=== PATIENT | female | born 1940 | race Caucasian/White ===

== ENCOUNTER 2017-10-31 10:18 | Observation (INO) | payer MEDICARE ==
--- NOTE | 2017-10-31 11:53 | HP ---
PRIMARY CARE PHYSICIAN: Ortega Jung M.D. REASON FOR ADMISSION: Transfer from [facility] for rule out CVA, suspected TIA. HISTORY OF PRESENT ILLNESS: A 77-year-old female with a history of hypertension who initially went t o [facility] with complaint of weakness and dizziness. The patient was having heada nuha in frontal region. She did not have any motor or sensory symptoms when she went to [facility]. She did not have any chest pain, palpitation or shortness of breath. She was hypert ensive with blood pressure 181/106 during triage. At [facility], they noted that cheo henriquez's left side of face was drooling and that is why they suspected TIA and considering stroke-like symptoms patient had CT brain at [facility] which was normal. Chest x-ray was also unremarkable. Routine blood test done at [facility] was also unremarkable. She di d not have any fever, chills, nausea, and vomiting. She denies any tinnitus. She denies any orthopn ea, PND or leg swelling. She denies any constipation, diarrhea, melena, or UTI symptoms. REVIEW OF SYSTEMS: The following complete review of systems was negative, unless otherwise mentioned in the HPI or below: Constitutional: Weight loss or gain, ability to conduct usual activities. Skin: Rash, itching. Eyes: Double vision, pain. ENT/Mouth: Nose bleeding, neck stiffness, pain, tenderness. Cardiovascular: Palpitations, dyspnea on exertion, orthopnea. Respiratory: Shortness of breath, wheezing, cough, hemoptysis, fever or night sweats. Gastrointestinal: Poor appetite, abdominal pain, heartburn, nausea, vomiting, constipation, or diarr hea. Genitourinary: Urgency, frequency, dysuria, nocturia. Musculoskeletal: Pain, swelling. Neurologic/Psychiatric: Anxiety, depression. Allergy/Immunologic: Skin rash, bleeding tendency. Please see my HPI for pertinent positive and negative. All other review of systems reviewed and nega tive except as mentioned in the HPI. ALLERGIES: No known drug allergies. CURRENT HOME MEDICATIONS: Aspirin 81 mg p.o. daily and metoprolol tartrate 50 mg p.o. daily. PAST MEDICAL HISTORY: Hypertension. PAST SURGICAL HISTORY: Hysterectomy. PAST PSYCHIATRIC HISTORY: Reviewed and negative. SOCIAL HISTORY: Patient lives at home. She does not work. She denies any tobacco, alcohol or illic it drug abuse. FAMILY HISTORY: No strong family history of premature coronary artery disease, stroke or cancer. EMERGENCY ROOM COURSE: Patient is given aspirin. PHYSICAL EXAMINATION: VITAL SIGNS: Currently, blood pressure 154/74, pulse 76, respiratory rate 15, temperature 97.5, satu ration 96% on room air, and weight 64 kilograms. GENERAL: Patient is currently alert, awake, no obvious acute distress. HEAD: Normocephalic, atraumatic. EYES: Pupils round, reactive to light. Extraocular muscle intact. ENT: Oropharynx within normal limits. Moist mucous membranes, no oral lesion, no pharyngeal erythem a, no exudate. NECK: Supple, no JVD, no thyromegaly, no carotid bruit, no jugular venous distention. LUNGS: Clear to auscultation without any rhonchi or rales. CARDIAC: S1, S2 regular without any murmur. ABDOMEN: Soft, bowel sounds present, nontender, and nondistended. No organomegaly, no mass, no supr apubic tenderness. BACK: Examination unremarkable, no CVA tenderness. EXTREMITIES: Upper extremity; passive movement of all joints are normal. Lower extremities: No balbir ma. Good peripheral pulsation. SKIN: No skin rash. HEMATOLOGICAL SYSTEM: No lymphadenopathy. PSYCHIATRIC: Normal affect. HEMATOLOGICAL SYSTEM: No lymphadenopathy. NEUROLOGIC: Patient is currently alert and oriented x3. Cranial nerves II-XII intact. Motor 5/5 in all four limbs. Sensation bilaterally symmetrical. No cerebellar sign. Plantar bilateral flexor. Speech normal. SIGNIFICANT FOR LABORATORY DATA: Blood tests done at [facility] reviewed. CBC: WB C 5.4, hemoglobin 15.4, platelet 220. INR 1.0. BMP: Sodium 137, potassium 3.3, chloride 99, BUN 18 , creatinine 0.98, glucose 118, calcium 9.6, magnesium 1.7. LFT: AST 18, ALT 15, alkaline phosphata se 66, albumin 4.0. CK 27, CK-MB 1.0. Troponin 0.015. BNP 30.6. Urinalysis normal. ASSESSMENT AND PLAN/IMPRESSION: 1. Dizziness, headache, facial droop, transient and now resolved, suspected for transient ischemic a ttack and rule out cerebrovascular accident. This patient has CT brain which is normal. Currently, patient is completely normal neurologically. We will do MRI brain and carotid ultrasound for further evaluation. No need of echocardiography because of normal cardiac examination and unremarkable on m onitor. If carotid Doppler and MRI is normal, then we will consider discharging her home tomorrow mo rning after neuro check for several hours. We will continue aspirin 325 mg p.o. daily. We will chec k homocysteine and lipid profile tomorrow and consider statin therapy. 2. Hypertension with hypertensive urgency. We will continue patient's home dose of metoprolol 50 mg p.o. daily. We will verify the patient's home medication. 3. Hypokalemia. We will replace potassium chloride 20 mEq p.o. one time dose. 4. Deep venous thrombosis prophylaxis not needed because we are expecting discharge in 24 hours. 5. Gastrointestinal prophylaxis, Pepcid 20 mg p.o. b.i.d. 6. Code status: The patient is FULL CODE. The patient does not have any surrogate decision maker. Disposition plan based on above-mentioned investigation result. We will consider discharging her coco e as early as tomorrow morning early if she remains neurologically intact in next several hours. Abo ve-mentioned investigation is unremarkable.
[2017-10-31] MEDS ORDERED: Ondansetron HCl/PF 4 MG/2 ML Vial IVP PRN (12:28)
[2017-10-31] MEDS ORDERED: Loratadine 10 MG TAB PO PRN (12:28)
[2017-10-31] MEDS ORDERED: Chloraseptic Spray 180 ml Bottle PO PRN (12:28)
[2017-10-31] MEDS ORDERED: HYDROcodone/Acetaminophen 5/325 mg Tablet PO PRN (12:28)
[2017-10-31] MEDS ORDERED: Sodium Chloride 0.65% Nasal 44 ML BOT EA NARE PRN (12:28)
[2017-10-31] MEDS ORDERED: Zolpidem Tartrate 5 MG TAB PO PRN (12:28)
[2017-10-31] MEDS ORDERED: Eucerin (Mineral Oil/Petrolatum,White) 30 gm Jar TOP PRN (12:28)
[2017-10-31] MEDS ORDERED: Milk Of Magnesia 30 ML UDCUP PO PRN (12:28)
[2017-10-31] MEDS ORDERED: Ondansetron ODT 4 MG TAB PO PRN (12:28)
[2017-10-31] MEDS ORDERED: Acetaminophen 325 MG TAB PO PRN (12:28)
[2017-10-31] MEDS ORDERED: Diabetic Tussin 200 MG/10 ML UDCUP PO PRN (12:28)
[2017-10-31] MEDS ORDERED: Artificial Tears 18 DROP/0.9 ML EA EYE PRN (12:28)
[2017-10-31] MEDS ORDERED: hydrALAZINE 20 MG/ML VIAL SLOW IVP PRN (12:28)
[2017-10-31] MEDS ORDERED: Senokot 8.6 MG TAB PO PRN (12:28)
[2017-10-31] MEDS ORDERED: Loperamide HCl 2 MG CAP PO PRN (12:28)
[2017-10-31] MEDS ORDERED: Mag-Al 1200 mg/1200 mg/30 ML UDCUP PO PRN (12:28)
[2017-10-31] MEDS ORDERED: Potassium Chloride 20 MEQ TAB PO SCH (12:30)
[2017-10-31 12:56] VITALS: BMI 24.1
--- NOTE | 2017-10-31 15:09 | MRI ---
MRI BRAIN: Date: 10/31/17 HISTORY: Weakness. FINDINGS: Noncontrast enhanced MRI of brain obtained. Images demonstrate old areas of stroke in the left cerebellum. No evidence of areas of diffusion rest ricted seen. The orbits are unremarkable. Normal flow-voids seen in the major intracranial vessels. Some fluid is seen in the left mastoid air cells. 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 No evidence of acute intracranial abnormality seen. POS: [facility]
--- NOTE | 2017-10-31 15:34 | ULT ---
BILATERAL CAROTID DUPLEX ULTRASOUND: DATE: 10/31/17 HISTORY: TIA. TECHNIQUE: Pascal scale ultrasound with color flow and spectral Doppler imaging of the extracranial carotid artery systems performed bilaterally. FINDINGS: Plaque formation is seen on both sides. The peak systolic velocity in the right ICA measures 74 cm/second with an end-diastolic velocity of 1 7 cm/second and a systolic ratio of 0.83. The peak systolic velocity in the left ICA measures 99 cm/second with an end-diastolic velocity of 25 cm/second and a systolic ratio of 0.99. Flow in both vertebral arteries remains antegrade. IMPRESSION: No evidence of hemodynamically significant stenosis. POS: [facility]
[2017-10-31] MEDS ORDERED: Atorvastatin Calcium 10 MG TAB PO SCH (21:00)
[2017-10-31] MEDS: Famotidine 20 MG TAB PO SCH (21:27)
[2017-11-01 05:43] LABS: Anion Gap 8 mmol/L (10-20); BUN (Urea Nitrogen) 13 mg/dL (9.8-20.1); Calc. Creatinine Clearance 63 mL/min (70-130); Calcium 9.5 mg/dL (7.8-10.44); Carbon Dioxide 29 mmol/L (23-31); Cardiac Risk 3.3 (Less than 4.5); Chloride 104 mmol/L (98-107); Cholesterol 158 mg/dl (< 200 Desired); Estimated GFR-MDRD 77; Glucose 107 mg/dL (83-110); HDL Cholesterol 48 mg/dL (>60 Neg Risk); LDL Cholesterol, Calculated 84 mg/dL; Potassium 3.3 mmol/L (3.5-5.1); Sodium 138 mmol/L (136-145); Triglycerides 129 mg/dL (Less than 150)
[2017-11-01 06:52] LABS: Band 1 % (5-11); Hemoglobin 14.3 g/dL (12.0-16.0); Lymphocytes 20 % (21-51); MDiff Complete? YES; Mean Corpuscular Hemoglobin 29.6 pg (27.0-31.0); Mean Corpuscular Volume 89.9 fl (81.0-99.0); Mean Platelet Volume 5.9 fL (7.4-10.4); Monocytes 10 % (0-10); Neutrophil 68 % (42-75); Platelet Count 247 thou/uL (130-400); RBC Distribution Width 13.2 % (11.5-14.5); Red Blood Cell (RBC) Count 4.83 mill/uL (4.20-5.40); White Blood Cell (WBC) Count 4.6 thou/uL (4.8-10.8)
[2017-11-01 07:47] VITALS: BP 130/72; TEMP 97.8
[2017-11-01] MEDS: Famotidine 20 MG TAB PO SCH (08:54)
[2017-11-01] MEDS ORDERED: Aspirin 325 mg Enteric Coated Tablet PO SCH (09:00)
[2017-11-01] MEDS ORDERED: Metoprolol Tartrate 50 MG TAB PO SCH (09:00)
--- NOTE | 2017-11-01 09:40 | PDOC.PN ---
- Subjective Encounter Start Date: 11/01/17 Encounter Start Time: 08:40 Patient seen and examined. No new complaints. No overnight events - Objective Resuscitation Status: Resuscitation Status FULL:Full Resuscitation MAR Reviewed: Yes Vital Signs & Weight: Vital Signs (12 hours) Temp Pulse Resp BP Pulse Ox 11/01/17 08:23 97.8 F 89 18 11/01/17 07:15 97.8 F 89 18 130/72 94 L 11/01/17 03:55 97.3 F L 72 16 100/46 L 97 10/31/17 23:32 98.1 F 75 16 101/60 98 Weight Weight 140 lb 8 oz I&O: 10/31/17 11/01/17 11/02/17 06:59 06:59 06:59 Intake Total 1020 Balance 1020 Result Diagrams: 11/01/17 04:55 11/01/17 04:55 Phys Exam - Physical Examination Constitutional: NAD HEENT: PERRLA, moist MMs, sclera anicteric Neck: no JVD, supple Respiratory: no wheezing, no rales, no rhonchi Cardiovascular: RRR, no significant murmur, no rub Gastrointestinal: soft, non-tender, no distention, positive bowel sounds Musculoskeletal: no edema, pulses present Neurological: non-focal, normal sensation, moves all 4 limbs Psychiatric: normal affect, A&O x 3 Skin: no rash, normal turgor Dx/Plan (1) Hypokalemia Code(s): E87.6 - HYPOKALEMIA Status: Acute (2) Hypertension Code(s): I10 - ESSENTIAL (PRIMARY) HYPERTENSION Status: Chronic (3) TIA (transient ischemic attack) Status: Ruled-out - Plan cont current plan of care * mri and carotid us is normal * medication reviewed as below * symptomatic treatment * discharge home. Review of Systems - Review of Systems ENT: negative: Ear Pain, Ear Discharge, Nose Pain, Nose Discharge, Nose Congestion, Mouth Pain, Mouth Swelling, Throat Pain, Throat Swelling, Other Respiratory: negative: Cough, Dry, Shortness of Breath, Hemoptysis, SOB with Excertion, Pleuritic Pain, Sputum, Wheezing Cardiovascular: negative: chest pain, palpitations, orthopnea, paroxysmal nocturnal dyspnea, edema, light headedness, other Gastrointestinal: negative: Nausea, Vomiting, Abdominal Pain, Diarrhea, Constipation, Melena, Hematochezia, Other Genitourinary: negative: Dysuria, Frequency, Incontinence, Hematuria, Retention , Other Musculoskeletal: negative: Neck Pain, Shoulder Pain, Arm Pain, Back Pain, Hand Pain, Leg Pain, Foot Pain, Other Skin: negative: Rash, Lesions, Randall, Bruising, Other Neurological: negative: Weakness, Numbness, Incoordination, Change in Speech, Confusion, Seizures, Other - Medications/Allergies Allergies/Adverse Reactions: Allergies Allergy/AdvReac Type Severity Reaction Status Date / Time No Known Allergies Allergy Verified 10/31/17 12:46 Medications: Current Medications Acetaminophen (Tylenol) 650 mg PO Q4H PRN PRN Reason: Headache/Fever or Pain Hydrocodone Bitart/Acetaminophen (Sherman 5/325) 1 tab PO Q4H PRN PRN Reason: Moderate Pain (4-6) Al Hydroxide/Mg Hydroxide (Maalox) 30 ml PO Q6H PRN PRN Reason: Heartburn or Indigestion Artificial Tears (Tears Naturale) 0 drop EA EYE PRN PRN PRN Reason: Dry Eyes Aspirin (Ecotrin) 325 mg PO DAILY [facility] Last Admin: 11/01/17 08:54 Dose: 325 mg Atorvastatin Calcium (Lipitor) 10 mg PO HS [facility] Last Admin: 10/31/17 21:27 Dose: 10 mg Famotidine (Pepcid) 20 mg PO BID [facility] Last Admin: 11/01/17 08:54 Dose: 20 mg Guaifenesin (Robitussin Sf) 200 mg PO Q4H PRN PRN Reason: Cough Hydralazine HCl (Apresoline) 10 mg SLOW IVP Q4H PRN PRN Reason: Systolic BP > 180 Loperamide HCl (Imodium) 2 mg PO PRN PRN PRN Reason: Diarrhea/Loose Stools Loratadine (Claritin) 10 mg PO DAILYPRN PRN PRN Reason: Sinus Symptoms Magnesium Hydroxide (Milk Of Magnesium) 30 ml PO DAILYPRN PRN PRN Reason: Constipation Metoprolol Tartrate (Lopressor) 50 mg PO DAILY [facility] Last Admin: 11/01/17 08:54 Dose: 50 mg Mineral Oil/White Petrolatum (Eucerin Cream) 0 gm TOP BIDPRN PRN PRN Reason: Dry Skin Ondansetron HCl (Zofran Odt) 4 mg PO Q6H PRN PRN Reason: Nausea/Vomiting Ondansetron HCl (Zofran) 4 mg IVP Q6H PRN PRN Reason: Nausea/Vomiting Phenol (Chloraseptic Alpine 180 Ml Bot) 0 ml PO PRN PRN PRN Reason: Sore Throat Senna (Senokot) 2 tab PO HSPRN PRN PRN Reason: Constipation Sodium Chloride ([place] Nasal [place]pine 0.65%) 0 ml EA NARE QIDPRN PRN PRN Reason: Nasal Congestion Zolpidem Tartrate (Ambien) 5 mg PO HSPRN PRN PRN Reason: Insomnia Last Admin: 10/31/17 21:27 Dose: 5 mg
--- NOTE | 2017-11-01 10:00 | DIS ---
PRIMARY CARE PHYSICIAN: Dr. Ortega Jung DATE OF ADMISSION: 10/31/2017 DATE OF DISCHARGE: 11/01/2017 DISCHARGE DISPOSITION: Home. PRIMARY DISCHARGE DIAGNOSES: 1. Hypokalemia. 2. Transient ischemic attack and cerebrovascular accident ruled out. SECONDARY DISCHARGE DIAGNOSIS: Hypertension. PRIMARY PROCEDURE/OPERATION: None. RADIOLOGICAL INVESTIGATION: CT brain at [facility] was normal. Chest x-ray was nor mal. MRI brain and carotid Doppler was also normal. SIGNIFICANT LABS: WBC 4.6, hemoglobin 14.3, platelet 247. Sodium 138, potassium 3.3, BUN 13, creati nine 0.73, calcium 9.5, LDL 84. Homocysteine 10.19. DISCHARGE MEDICATIONS: Aspirin 81 mg p.o. daily, Lipitor 10 mg p.o. at bedtime, hydrochlorothiazide 25 mg p.o. daily, potassium chloride 10 mEq p.o. daily. CONTRAINDICATIONS: None. CODE STATUS: FULL CODE. INPATIENT CONSULTANTS: None. ALLERGIES: No known drug allergy. DISCHARGE PLAN: Post hospital, the patient will follow up with primary care physician in 1 week. HOSPITAL COURSE: A 77-year-old female who initially went to [facility] because she was feeling dizziness and weakness. At the emergency room, they noted that patient had a facial droo p and that is why they were worried about CVA and CT brain was done which did not show any acute proc ess. Subsequently, this patient was transferred to our hospital for rule out CVA. We did MRI brain and carotid ultrasound which came back normal. Her neurological examination on admission as well as subsequently remained normal. We observed her overnight with the monitor and that remained normal as well and she remained neurologically intact. Overall, this patient remained medically stable and this morning we are considering discharge with e same home medications. We are starting low dose of statin therapy. The patient is seen and examined at bedside today. Please see my progress note from today for furthe r details.
== END 2017-11-01 10:14 | disposition home or self-care (01) ==
LOC: ERS 10:18 → 2SE 11:05
PROVIDERS: ADMIT Internal Medicine; ATTEND Internal Medicine
DX: E87.6 Hypokalemia (principal); I10 Essential (primary) hypertension; I16.0 Hypertensive urgency; R29.810 Facial weakness; Z79.82 Long term (current) use of aspirin; Z79.899 Other long term (current) drug therapy; Z90.710 Acquired absence of both cervix and uterus
CPT/HCPCS: 70551; 80048; 80061; 83090; 85025; 93880; 99285; G0378; 36415

== ENCOUNTER 2018-05-22 20:04 | Emergency (ER) | payer MEDICARE ==
--- NOTE | 2018-05-22 21:07 | CT ---
HEAD CT NONCONTRAST: 05/22/18 COMPARISON: 10/21/17 INDICATION: Trauma. Fall with head injury and pain. FINDINGS: There a moderate sized left inferior frontal scalp hematoma. Mild chronic ischemic disease is seen wi thin the cerebral white matter. There is encephalomalacia of the cerebellum, more notable on the left , grossly stable. No intracranial hemorrhage, mass effect or midline shift. No depressed calvarial fr acture. There is mild mucosal thickening of the paranasal sinuses and minimal opacification of the le ft mastoid air cells. IMPRESSION: No acute intracranial hemorrhage or mass effect. Left frontal scalp hematoma. Additional details are described above. POS: [facility]
--- NOTE | 2018-05-22 21:16 | RAD ---
LUMBAR SPINE TWO VIEWS: 05/22/18 HISTORY: Fall. Pain. FINDINGS: Based on the images provided, vertebral body height appears to be maintained. No obvious fractures. T here is diffuse bone demineralization. If there is pain or point tenderness, consider CT. Disc space heights are preserved. Possible left pars defect at L5. IMPRESSION: Diffuse bone demineralization. If there is concern, consider CT. POS: [facility]
--- NOTE | 2018-05-22 21:22 | CT ---
CT CERVICAL SPINE WITHOUT CONTRAST: 05/22/18 HISTORY: Fall. Posttraumatic pain. COMPARISON: None. FINDINGS: No craniocervical dissociation. Intact odontoid process. Lateral masses of C1 and C2 articulate appro priately. There is appropriate articulation of the facets. No malalignment. There is moderate central canal stenosis secondary to degenerative change at C5-C6. Varying degrees of foraminal stenosis due to degenerative change. Evaluation is limited by technique. Soft tissue neck structures, upper mediastinum, and lung apices are unremarkable. There is evidence c avernous carotid atherosclerosis. IMPRESSION: 1. No cervical spine fracture. 2. Moderate central canal stenosis due to degenerative change at C5-C6. POS: [facility]
[2018-05-22 21:34] LABS: #Lymphocytes 0.5 thou/uL (1.20-3.40); %Basophils 0.3 % (0.0-1.0); %Eosinophils 0.4 % (0.0-10.0); %Lymphocytes 6.9 % (21.0-51.0); %Monocytes 13.1 % (0.0-10.0); %Neutrophils 79.3 % (42.0-75.0); Mean Corpuscular HGB CONC 33.7 g/dL (32.0-36.0); Mean Corpuscular Hemoglobin 30.4 pg (27.0-31.0); Mean Platelet Volume 6.2 fL (7.4-10.4); Platelet Count 226 thou/uL (130-400); RBC Distribution Width 12.7 % (11.5-14.5); Red Blood Cell (RBC) Count 4.94 mill/uL (4.20-5.40); White Blood Cell (WBC) Count 7.6 thou/uL (4.8-10.8)
[2018-05-22] MEDS ORDERED: Oxymetazoline HCl 0.05% ( 15 ML ) ONE (21:40)
[2018-05-22] MEDS ORDERED: Ibuprofen 200 MG TAB ONE (21:40)
--- NOTE | 2018-05-22 21:42 | CT ---
FACIAL BONES CT WITHOUT CONTRAST: 05/22/18 HISTORY: Fall. Loss of consciousness. Alter and oriented x2. FINDINGS: There is left periorbital soft tissue swelling. Bilateral ocular lens implants are noted and appropri ately positioned. Symmetric attenuation of the optic nerves and ocular rectus muscles. There is soft tissue swelling about the level of the nose. Bilateral nasal bone fractures are identified. the nasal septum appears to be intact with mild leftward deviation. The osseous margins of the sinuses are sawyer ntained. The osseous margins of the orbits are maintained. Both mandibular condyles are appropriately located. Maxilla and mandible are intact. Intact zygomatic arches. Pterygoid plates are intact. IMPRESSION: 1. Bilateral nasal bone fractures. 2. Left periorbital soft tissue swelling/hematoma. POS: [facility]
[2018-05-22 22:04] LABS: ALT (SGPT) 15 U/L (8-55); Acetaminophen Less than 6.0 mcg/mL (10.0-30.0); Albumin 3.9 g/dL (3.4-4.8); Alcohol Less than 10 mg/dL (Less than 10); Alkaline Phosphatase 76 U/L (40-150); Anion Gap 10 mmol/L (10-20); BUN (Urea Nitrogen) 16 mg/dL (9.8-20.1); Bilirubin, Total 1.1 mg/dL (0.2-1.2); Calc. Creatinine Clearance 0 mL/min (70-130); Calcium 9.1 mg/dL (7.8-10.44); Carbon Dioxide 29 mmol/L (23-31); Chloride 98 mmol/L (98-107); Estimated GFR-MDRD 50; Glucose 143 mg/dL (83-110); Potassium 3.1 mmol/L (3.5-5.1); Protein, Total 7.9 g/dL (6.0-8.3); Salicylate Less than 8.0 mg/dL (15.0-30.0); Sodium 134 mmol/L (136-145)
[2018-05-22 22:07] LABS: Bilirubin Negative (Negative); Blood, Urine Small (Negative); Clarity CLEAR (Clear); Glucose, Urine (Dipstick) Negative (Negative); Leukocyte Negative (Negative); Nitrite Negative (Negative); Protein, Urine (Dipstick) Negative (Neg-Trace); Specific Gravity, Urine 1.012 (1.002-1.036); pH, Urine 6.5 (5.0-9.0)
[2018-05-22 22:09] LABS: Bacteria/HPF None Seen HPF (None Seen); Hyaline Casts/LPF 0-3 HYALINE CAST LPF (0-3 Hyaline); Pathc Cast-AUWi Flag 0.14 (0-2.49); Squamous Epithelial 0-3 HPF (0-3); WBC/HPF None Seen HPF (0-3)
[2018-05-22 22:17] LABS: Amphetamine Not Detected (NotDetected); Barbiturates Screen Not Detected (NotDetected); Benzodiazepine Screen Not Detected (NotDetected); Cocaine Metabolite Screen Not Detected (NotDetected); Medtox Control Line Valid? VALID (VALID); Medtox Reader # READER 1; Methadone Not Detected (NotDetected); Methamphetamine Not Detected (NotDetected); Opiate Screen Not Detected (NotDetected); Oxycodone Screen Not Detected (NotDetected); Phencyclidine (PCP) Not Detected (NotDetected); THC/Cannabinoid Screen Not Detected (NotDetected); Tricyclic Screen Not Detected (NotDetected)
[2018-05-22 23:01] LABS: AST (SGOT) 23 U/L (5-34)
--- NOTE | 2018-05-25 18:15 | EKG ---
Test Reason : Blood Pressure : / mmHG Vent. Rate : 089 BPM Atrial Rate : 089 BPM P-R Int : 162 ms QRS Dur : 092 ms QT Int : 354 ms P-R-T Axes : 050 032 037 degrees QTc Int : 430 ms Normal sinus rhythm Normal ECG Confirmed by JONATAN MAYER, BARBARA Chino ([id number]), medical transcription editor MANAS WILLARD ([id number]) on 05/25/2018 6:15:04 PM Referred By: Confirmed By:BARBARA CHEUNG MD
== END 2018-05-22 22:42 | disposition home or self-care (01) ==
LOC: ERS 20:04
DX: S02.2XXA Fracture of nasal bones, initial encounter for closed fracture (principal); S39.012A Strain of muscle, fascia and tendon of lower back, initial encounter; S00.11XA Contusion of right eyelid and periocular area, initial encounter; I10 Essential (primary) hypertension; Z79.82 Long term (current) use of aspirin; Z79.899 Other long term (current) drug therapy; W18.30XA Fall on same level, unspecified, initial encounter; Y93.01 Activity, walking, marching and hiking
CPT/HCPCS: 36415; 70450; 70486; 72100; 72125; 80053; 80306; 80307; 81003; 81015; 85025; 93005

== ENCOUNTER 2018-08-30 08:18 | Emergency (ER) | payer MEDICARE ==
--- NOTE | 2018-08-30 10:48 | ULT ---
ULTRASOUND PELVIS DOPPLER DUPLEX: Date: 08/30/18 HISTORY: 78-year-old female with right lower quadrant/right pelvic pain and cystic lesion found in the pelvis on recent CT earlier today. TECHNIQUE: Transabdominal transducer was used to evaluate intrapelvic contents using Pascal scale, color flow, and spectral analysis. FINDINGS: Uterus is surgically absent. Urinary bladder has normal wall thickness, with no intraluminal mass. Th ere is an approximately 4.7 x 3.5 x 3.0 cm right adnexal structure that indents the right upper aspec t of the urinary bladder This includes a 3.0 x 2.3 x 2.6 cm thin-walled simple cyst. The other portio n of this structure has intermediate, solid echogenicity, which has blood flow demonstrated by Dopple r. This is consistent with a right ovary containing a simple cyst, that corresponds to the finding on the recent CT. The left ovary is not visualized. There is no free fluid in the cul-de-sac. IMPRESSION: 1. A 3 cm simple right ovarian cyst, highly likely to be benign. Because this is a postmenopausal fe male, a 1 year follow-up pelvic ultrasound is recommended. 2. Status post hysterectomy. POS: [facility]
== END 2018-08-30 10:12 | disposition home or self-care (01) ==
LOC: ERS 08:18
DX: N83.201 Unspecified ovarian cyst, right side (principal); I10 Essential (primary) hypertension; Z87.891 Personal history of nicotine dependence; Z79.82 Long term (current) use of aspirin; Z79.899 Other long term (current) drug therapy
CPT/HCPCS: 76856; 93976

== ENCOUNTER 2018-10-14 14:58 | Observation (INO) | payer MEDICARE ==
--- NOTE | 2018-10-14 16:17 | CT ---
CT BRAIN WITHOUT CONTRAST: Indication: History of intermittent dizziness and visual changes. Comparison: CT brain, 05-22-18 FINDINGS: The left cerebellar encephalomalacia is stable. Chronic small vessel white matter ischemic change is similar appearing. Centrum pellucidum and third ventricle are midline. No acute infarct, hemorrhage, or hydrocephalus is present. Mastoid air cells and sinuses are clear. IMPRESSION: 1. No acute intracranial abnormality. 2. Stable chronic ischemic change as above. POS: [facility]
[2018-10-14 16:33] LABS: %Monocytes 13.4 % (0.0-10.0); Red Blood Cell (RBC) Count 5.41 mill/uL (4.20-5.40)
[2018-10-14 16:41] LABS: #Lymphocytes 1.3 thou/uL (1.20-3.40); #Neutrophils 4.9 thou/uL (1.40-6.50); %Basophils 0.4 % (0.0-1.0); %Eosinophils 0.5 % (0.0-10.0); %Lymphocytes 18.1 % (21.0-51.0); %Neutrophils 67.5 % (42.0-75.0); Hemoglobin 16.6 g/dL (12.0-16.0); Mean Corpuscular HGB CONC 33.1 g/dL (32.0-36.0); Mean Corpuscular Hemoglobin 30.6 pg (27.0-31.0); Mean Corpuscular Volume 92.4 fL (78.0-98.0); Mean Platelet Volume 6.5 fL (7.4-10.4); Platelet Count 271 thou/uL (130-400); White Blood Cell (WBC) Count 7.2 thou/uL (4.8-10.8)
[2018-10-14 17:22] LABS: Bilirubin Negative (Negative); Blood, Urine Trace (Negative); Clarity CLEAR (Clear); Glucose, Urine (Dipstick) Negative (Negative); Leukocyte Negative (Negative); Nitrite Negative (Negative); Protein, Urine (Dipstick) Negative (Neg-Trace); Specific Gravity, Urine 1.006 (1.002-1.036)
[2018-10-14 17:25] LABS: Bacteria/HPF None Seen HPF (None Seen); Hyaline Casts/LPF 0-3 HYALINE CAST LPF (0-3 Hyaline); Pathc Cast-AUWi Flag 0.14 (0-2.49); RBC/HPF 0-3 HPF (0-3); Squamous Epithelial 0-3 HPF (0-3); WBC/HPF 0-3 HPF (0-3)
[2018-10-14 19:12] LABS: Albumin 4.1 g/dL (3.4-4.8)
[2018-10-14 19:13] LABS: Chloride 100 mmol/L (98-107); Sodium 140 mmol/L (136-145)
[2018-10-14 19:14] LABS: Calcium 9.9 mg/dL (7.8-10.44); Glucose 96 mg/dL (83-110)
[2018-10-14 19:15] LABS: Globulin 3.9 g/dL (2.4-3.5)
[2018-10-14 19:16] LABS: Anion Gap 13 mmol/L (10-20); Bilirubin, Total 1.1 mg/dL (0.2-1.2); Carbon Dioxide 30 mmol/L (23-31)
[2018-10-14 19:17] LABS: Alkaline Phosphatase 81 U/L (40-150)
[2018-10-14 19:18] LABS: Calc. Creatinine Clearance 0 mL/min (70-130); Estimated GFR-MDRD 68
[2018-10-14 19:19] LABS: BUN (Urea Nitrogen) 17 mg/dL (9.8-20.1)
[2018-10-14 19:20] LABS: ALT (SGPT) 14 U/L (8-55); AST (SGOT) 18 U/L (5-34)
--- NOTE | 2018-10-14 20:21 | PDOC.FPRHP ---
- History of Present Illness Chief Complaint: cloudy vision History of Present Illness: 78 yo F with presents to ED for blurry vision. Has been ongoing for two weeks, episodic lasting 5-10 minutes. Described as cloudy vision. Denies complete vision loss, pain, tearing, headache, vertigo. Worse in left than right. No specific trigger. Patient denies numbness, tingling, slurring, paralysis during these episodes (though ED report says daughter has noticed "speech is off") Came to ED due to urging of family and friends. 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 PMH pertinent for HTN. No DM2, or hyperlipidemia. Former smoker with 6 pack year history. ED Course: No meds given in ED, neuro sxs had resolved by the time she arrived - Allergies/Adverse Reactions Allergies Allergy/AdvReac Type Severity Reaction Status Date / Time No Known Allergies Allergy Verified 10/31/17 12:46 - Home Medications Medication Instructions Recorded Confirmed Type Aspirin [Isis Chewable Aspirin] 81 mg PO DAILY 10/31/17 10/14/18 History Hydrochlorothiazide 25 mg PO DAILY 10/31/17 10/14/18 History Potassium Chloride [K-Dur] 20 meq PO DAILY 10/31/17 10/14/18 History Metoprolol Tartrate [Lopressor] 50 mg PO DAILY 10/14/18 10/14/18 History Aspirin [Ecotrin Low Strength] 81 mg PO DAILY tab 10/15/18 Rx Atorvastatin Calcium [Lipitor] 40 mg PO HS #30 tab 10/15/18 Rx - History PMHx: HTN, hypoglycemia "low sugars" PSHx: Hysterectomy FHx: no hx of strokes or clotting disorders Social: former smoker (6 pack year history), quit several years ago. Denies etoh or drug use - Review of Systems General: denies: fever/chills, weight/appetite/sleep changes Eyes: reports: vision changes. denies: eye pain ENT: denies: nasal congestion, rhinorrhea Respiratory: denies: cough, congestion, shortness of breath Cardiovascular: denies: chest pain, palpitation, orthopnea Gastrointestinal: denies: nausea, vomiting, diarrhea, constipation, GI bleeding Genitourinary: denies: incontinence, dysuria, polyuria Skin: denies: rashes, lesions Musculoskeletal: denies: pain, tenderness Neurological: denies: numbness, syncope, seizure, weakness - Vital signs BP: [157/73] HR: [76] RR: [18] Tmax: [97] Pox: [96]% on [RA] Wt: [62kg] - Physical Exam Constitutional: NAD, awake, alert and oriented HEENT: normocephalic and atraumatic, PERRLA, EOMI, conjunctiva clear, no scleral icterus, grossly normal vision Neck: supple, FROM, trachea midline Chest: no-tender to palpation Heart: RRR, normal S1/S2, no murmurs/rubs/gallops Lungs: CTAB, no respiratory distress, no wheezing, no retractions Abdomen: soft, non-tender, bowel sounds present Musculoskeletal: normal structure, normal tone, ROM grossly normal Neurological: no focal deficit, CN II-XII intact, normal sensation Skin: no rash/lesions, good turgor Heme/Lymphatic: no unusual bruising or bleeding, no purpura Psychiatric: normal mood and affect, good judgment and insight, intact recent and remote memory FMR H&P: Results - Labs Result Diagrams: 10/15/18 05:12 10/15/18 05:12 Lab results: WBC 7.2 thou/uL (4.8-10.8) 10/14/18 16:04 Hgb 16.6 g/dL (12.0-16.0) H 10/14/18 16:04 Hct 50.0 % (36.0-47.0) H 10/14/18 16:04 MCV 92.4 fL (78.0-98.0) 10/14/18 16:04 Plt Count 271 thou/uL (130-400) 10/14/18 16:04 Neutrophils % 67.5 % (42.0-75.0) 10/14/18 16:04 Sodium 140 mmol/L (136-145) 10/14/18 18:47 Potassium 3.0 mmol/L (3.5-5.1) L 10/14/18 18:47 Chloride 100 mmol/L (98-107) 10/14/18 18:47 Carbon Dioxide 30 mmol/L (23-31) 10/14/18 18:47 BUN 17 mg/dL (9.8-20.1) 10/14/18 18:47 Creatinine 0.81 mg/dL (0.6-1.1) 10/14/18 18:47 Glucose 96 mg/dL (83-110) 10/14/18 18:47 Calcium 9.9 mg/dL (7.8-10.44) 10/14/18 18:47 Total Bilirubin 1.1 mg/dL (0.2-1.2) 10/14/18 18:47 AST 18 U/L (5-34) 10/14/18 18:47 ALT 14 U/L (8-55) 10/14/18 18:47 Alkaline Phosphatase 81 U/L (40-150) 10/14/18 18:47 Serum Total Protein 8.0 g/dL (6.0-8.3) 10/14/18 18:47 Albumin 4.1 g/dL (3.4-4.8) 10/14/18 18:47 Urine Ketones Negative mg/dL (Negative) 10/14/18 17:05 Urine Blood Trace (Negative) H 10/14/18 17:05 Urine Nitrite Negative (Negative) 10/14/18 17:05 Ur Leukocyte Esterase Negative (Negative) 10/14/18 17:05 Urine RBC 0-3 HPF (0-3) 10/14/18 17:05 Urine WBC 0-3 HPF (0-3) 10/14/18 17:05 Ur Squamous Epith Cells 0-3 HPF (0-3) 10/14/18 17:05 Urine Bacteria None Seen HPF (None Seen) 10/14/18 17:05 - Radiology Interpretation CT scan - head Status: report reviewed by me Additional comment: negative for ICH FMR H&P: A/P - Problem List (1) Hypokalemia Current Visit: No Status: Acute Code(s): E87.6 - HYPOKALEMIA (2) Hypertension Current Visit: No Status: Chronic Code(s): I10 - ESSENTIAL (PRIMARY) HYPERTENSION - Plan 78 yo F with hx of prior CVA here for TIA rule out Suspected TIA -Carotid doppler from 10/2017 showed plaque formation but no significant stenosis -Will order carotid doppler since it's been a year -TTE -risk stratify with a1c, FLP -ASA daily, will start on high intensity statin -start on diet, already eaten by time I saw pt.-had no problems Hypokalemia -will repalce, recheck in AM Polycythemia -record review shows baseline H/H upper limit of normal -H/H: -will give fluids, recheck in AM, may be hemoconcentrated -former smoker, no AJ -can continue outpt workup for primary/secondary causes of polycythemia dvt ppx: lovenox diet: HH dispo: <[address] Collazo FMR H&P: Upper Level - Pertinent history 78 y/o F with blurry vision for 2w. Episode today lasting 10 mins and she decided to come to ED. daughter says she has had a stroke in the past and her only chronic condition is HTN, but has a questionable history of CVA in the 1979. Currently eating a [employer] cheesburger and denies pain, weakness, SOB, chest pain, or current vision changes. Stable VS in ED. - Pertinent findings as below - Plan Date/Time: 10/14/182020 I, Chon Salamanca, have evaluated this patient and agree with findings/plan as outlined by mba intern resident. Pertinent changes/additions are listed here. 1. Suspected TIA - We ordered ASA as it was not given in ED. Sx now resolved, but will continue workup with FLP/A1c. Will likely benefit from MRI in AM and will discuss with day rounding team. Will order carotid doppler & TTE. Continue ASA/Statin and pt reportedly passed bedside swallow study. 2. Hypokalemia -will repalce, recheck in AM 3. Polycythemia- Former smoker. Will hydrate and recheck in AM. Consider additional w/u. 4. HTN - Will resume home medications in AM. Addendum - Attending - Attending Attestation Date/Time: 10/16/18 0010 I personally evaluated the patient and discussed the management with Dr. Soares on 10/14/2018 I agree with the History, Examination, Assessment and Plan documented above with any addition or exceptions noted below- 78 yo F with h/o HTN presents to ED for blurry vision. Has been ongoing for two weeks, episodic lasting 5-10 minutes. Described as cloudy vision. Denies complete vision loss, pain, tearing , headache, vertigo. Worse in left than right. No specific trigger. Patient denies numbness, tingling, slurring, paralysis during these episodes (though ED report says daughter has noticed "speech is off"). PMH/PSH/Meds/SH reviewed and agree with resident's documentation. Afebrile RR20 P83 BP 154/74 96%RA Exam repeated by me and agree iwth resident's findings. Labs: WBC=7.2, H/H=16/50, Plt =271, Lt=829, K=3.0, Pn=578, CO2=30, BUN/Cr=17/0.81, Gluc=96, TevU0d=4.3, trop I <0.010, PT/INR=13.4/1.0, CT brain neagtive for acute changes. A/P: 1) TIA vs CVA - Place in obs. Continue ASA. Plan for echo, MRI brain and MRA neck in AM. 2) HTN- plan for permissive hypertension; resume home meds in 24 hours.
[2018-10-14] MEDS ORDERED: hydrALAZINE 20 MG/ML VIAL SLOW IVP PRN (21:48)
[2018-10-14 21:58] VITALS: BMI 23.6
[2018-10-14] MEDS ORDERED: Aspirin 81 mg Enteric Coated Tablet PO SCH (22:00)
[2018-10-14] MEDS ORDERED: Potassium Chloride 40 MEQ in Premix Bag 1 BAG IVPB SCH (22:00)
[2018-10-14 22:04] LABS: PTT 29.9 SEC (22.9-36.1); Prothrombin Time 13.4 SEC (12.0-14.7)
[2018-10-14 22:06] LABS: Hemoglobin A1c 5.3 % (4.0-6.0)
[2018-10-14] MEDS: Potassium Chloride 20 MEQ in Premix Bag 1 BAG IVPB SCH ×2 (22:55→23:48)
[2018-10-14 22:56] LABS: Cardiac Risk 2.3 (Less than 4.5)
[2018-10-14] MEDS ORDERED: Sodium Chloride 0.9% 1,000 ML IV SCH (23:15)
[2018-10-14] MEDS ORDERED: NS 0.9% w/ 40 MEQ KCL 1,000 ML IV SCH (23:30)
[2018-10-15] MEDS: Potassium Chloride 20 MEQ in Premix Bag 1 BAG IVPB SCH (00:03)
[2018-10-15] MEDS ORDERED: NS 0.9% w/ 40 MEQ KCL 1,000 ML IV SCH (03:36)
[2018-10-15 06:08] LABS: Anion Gap 9 mmol/L (10-20); BUN (Urea Nitrogen) 15 mg/dL (9.8-20.1); Calc. Creatinine Clearance 55 mL/min (70-130); Calcium 9.1 mg/dL (7.8-10.44); Carbon Dioxide 29 mmol/L (23-31); Chloride 105 mmol/L (98-107); Estimated GFR-MDRD 69; Glucose 106 mg/dL (83-110); Potassium 3.8 mmol/L (3.5-5.1); Sodium 139 mmol/L (136-145)
[2018-10-15 06:09] LABS: Hemoglobin 14.1 g/dL (12.0-16.0); Lymphocytes 9 % (21-51); MDiff Complete? YES; Mean Corpuscular HGB CONC 33.5 g/dL (32.0-36.0); Mean Corpuscular Hemoglobin 30.8 pg (27.0-31.0); Mean Corpuscular Volume 92.1 fL (78.0-98.0); Mean Platelet Volume 6.3 fL (7.4-10.4); Monocytes 4 % (0-10); Neutrophil 76 % (42-75); Platelet Count 231 thou/uL (130-400); Platelet Morphology Comment Appears Adequate; RBC Distribution Width 12.7 % (11.5-14.5); RBC Morphology Normal; Reactive Lymphocytes 11 % (0-10); Red Blood Cell (RBC) Count 4.58 mill/uL (4.20-5.40)
--- NOTE | 2018-10-15 06:20 | PDOC.FM ---
- Subjective Subjective: Patient reports resolution of symptoms. Denies any headache, blurry vision, numbness, weakness, chest pain, or SOB. - Objective MAR Reviewed: Yes Vital Signs & Weight: Vital Signs (12 hours) Temp Pulse Resp BP Pulse Ox 10/15/18 04:00 97.8 F 76 19 112/66 96 10/15/18 00:00 98.3 F 56 L 20 126/70 97 10/14/18 23:15 120/82 10/14/18 20:14 97.7 F 83 20 154/74 H 96 Weight Weight 62.505 kg I&O: 10/13/18 10/14/18 10/15/18 06:59 06:59 06:59 Intake Total 1911 Balance 1911 Result Diagrams: 10/15/18 05:12 10/15/18 05:12 Phys Exam - Physical Examination Constitutional: NAD HEENT: PERRLA, moist MMs Neck: supple, full ROM Respiratory: no wheezing, no rales, no rhonchi, clear to auscultation bilateral Cardiovascular: RRR, no significant murmur Gastrointestinal: positive bowel sounds Musculoskeletal: no edema Neurological: non-focal, normal sensation, moves all 4 limbs Psychiatric: normal affect, A&O x 3 Skin: no rash, normal turgor Dx/Plan (1) History of CVA (cerebrovascular accident) Code(s): Z86.73 - PRSNL HX OF TIA (TIA), AND CEREB INFRC W/O RESID DEFICITS Status: Acute (2) History of tobacco use Code(s): Z87.891 - PERSONAL HISTORY OF NICOTINE DEPENDENCE Status: Acute (3) Hypertension Code(s): I10 - ESSENTIAL (PRIMARY) HYPERTENSION Status: Chronic (4) TIA (transient ischemic attack) Status: Ruled-out - Plan Plan: 78 yo F with hx of prior CVA here for TIA rule out. Suspected TIA -CT on admission showed only chronic small vessel changes -Carotid doppler from 10/2017 showed plaque formation but no significant stenosis -Will order a repeat carotid doppler since it's been a year -TTE pending as well -A1c & FLP WNLs. -Will continue ASA 81mg & atorvastatin 40mg QD. - Will consider an MRI this AM. Hypokalemia - Resolved. Will continue to monitor w/ QD BMPs. Polycythemia -record review shows baseline H/H upper limit of normal. -WNLs this AM s/p IVFs overnight. Therefore likely 2/2 hemoconcentration. -former smoker, no AJ dvt ppx: lovenox diet: HH dispo: <2 midnight
[2018-10-15] MEDS: Enoxaparin Sodium 40 MG/0.4 ML SYRINGE SC SCH (08:55)
[2018-10-15] MEDS: Aspirin 81 mg Enteric Coated Tablet PO SCH (08:55)
[2018-10-15] MEDS ORDERED: Gadobenate Dimeglumine 529 MG/1 ML (20ML VIAL) ONE (10:06)
--- NOTE | 2018-10-15 12:26 | PRG ---
DATE OF SERVICE: 10/15/2018 ADDENDUM: Please add this as an addendum to the note of Dr. Emelyn Mejia. Ms. Macario is a pleasant 78-year-old white female, who was admitted with episodes of blurred vision. She states that these lasted around 4 minutes, were intermittent and unrelated to exercise or stress. She presented to our ER and has been admitted for a TIA workup. She will undergo an MRA of the head and neck and an echocardiogram. We have started aspirin and atorvastatin. If her workup proves negative, we have advised that she see an librarian specialist for further eye exam. Job ID: [id number]
--- NOTE | 2018-10-15 16:03 | MRI ---
BLACKFEET OF CAMACHO MRA 10/15/18 HISTORY: Dizziness. Vision changes. Numbness to left hand. Noncontrast enhanced [place] band of [place] MRA performed. The patient has a dominant left vertebral artery and aplastic right vertebral artery. Good flow is seen in the posterior cerebral circulation seen along the course of the basilar artery a s well as the right and left posterior cerebral arteries. Good flow is seen in the right and left internal carotid arteries. Normal flow is seen in the right a nd left anterior cerebral arteries and middle cerebral arteries. The patient has a visualized left po sterior communicating artery. The right posterior communicating artery is not visible and may be abs ent or hypoplastic. 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 Extensive left cerebellar hemispheric infarction which is likely chronic as seen on the source images . POS: BRANDEE
--- NOTE | 2018-10-15 16:07 | MRI ---
PRE AND POSTCONTRAST ENHANCED CAROTID MRA 10/15/18 HISTORY: Dizziness, vision changes. 2D uiat-qo-klrsop carotid MRA and three coronal slab contrast enhanced carotid MRA images obtained. The aortic arch is unremarkable. The right brachiocephalic artery is patent. The right and left subclavian arteries are patent. The right common carotid, internal carotid and external carotid arteries are patent. LEFT CAROTID: The left common carotid artery is patent in the proximal, mid and distal portions. In the proximal mo st aspect of the left ICA there is a focal area of stenosis resulting in approximately 50-60% left or igin ICA stenosis. Mid and distal aspect of the left ICA is patent. The patient has an absent right vertebral artery. The patient has a dominant and patent left vertebra l artery. IMPRESSION: Approximately 50-60% origin left ICA stenosis. POS: BRANDEE
--- NOTE | 2018-10-15 18:40 | CON ---
DATE OF CONSULTATION: 10/15/2018 PRIMARY CARE PHYSICIAN: Dr. Ortega Jung. CHIEF COMPLAINT: Cloudy vision. HISTORY OF PRESENT ILLNESS: The patient is an 78-year-old woman with a distant history of a stroke, who over the last 2 or 3 weeks, she has had a few episodes of visual disturbance. While different examiners got different impressions of the disturbance that she had that included monocular symptoms or left-sided visual field deficits. What she described to me was that the entirety of her vision got cloudy to the point that she had difficulty really seeing much of anything and that putting 1 hand in front of one eye or the other did not seem to make very much difference. These episodes had lasted 10 or 15 minutes at a time. One seemed to be associated with some left arm numbness or tingling, but she did not have any extremity weakness. It was described that she seemed to sore her speech a little bit during some of these episodes. She denies any palpitations or any dramatic presyncope or dizziness. She did feel a little bit lightheaded; however. About a year ago, she was also evaluated for possible TIA and at that time, the H and P describes her having had weakness and dizziness associated with a frontal headache. PAST MEDICAL HISTORY: Significant for hypertension. She reported a history of some type of stroke in the that left her with minimal residual. MEDICATIONS: The patient's home medicines are listed as; 1. Lopressor 50 mg a day. 2. Hydrochlorothiazide 25 mg a day. 3. Lipitor 40 mg a day. 4. Potassium 20 mEq a day. 5. Baby aspirin a day. 6. Low-dose Lovenox for DVT prophylaxis has been added to that regimen. ALLERGIES: THE PATIENT DENIES ANY MEDICAL ALLERGIES. SOCIAL HISTORY: She has trivial distant history of smoking. FAMILY HISTORY: Negative for strokes. REVIEW OF SYSTEMS: Negative for any clear-cut monocular eye symptoms, it is equivocal about dysarthria. She has had the left arm numbness, but no weakness. She denies any balance problems. She had some mild lightheadedness, but denied dizziness to me. She denies any chest pain or palpitations. Denies any shortness of breath. PHYSICAL EXAMINATION: GENERAL: She is in no distress. VITAL SIGNS: She is 5 feet 4 inches, weighs 137 and 3/4 pounds. Heart rate is 81, blood pressure 113/67, and temperature is 97.7. HEENT: She has no xanthelasma. NECK: No JVD. No carotid bruits. CHEST: Clear to auscultation. She has a regular rate and rhythm without murmur or gallop. ABDOMEN: Soft and nontender without any organomegaly. NEUROLOGIC: Cranial nerves 2 through 12 are grossly intact as is upper and lower extremity strength. LABORATORY DATA: Showed white count of 7.2, hemoglobin 16.6, hematocrit 50.0, and platelet counts of 271,000. PT was 13.4 with an INR 1.0 and PTT of 29.9. Chemistries show sodium 140, potassium 3.0, chloride 100, CO2 of 30, glucose 96, BUN 13, and creatinine 0.81. Normal LFTs. Albumin was 4.1, protein 8.0, calcium 9.9, and magnesium 2.6. Triglycerides were 90, total cholesterol 128 with LDL of 55 and HDL of 55. Urinalysis was clean. CT scan showed no obvious acute changes with cerebellar encephalomalacia. MRI of the brain showed the old cerebellar infarct. She has an atretic right vertebral artery and right posterior communicating artery. Otherwise, normal flow voids on the MRA of the brain of her neck. The report described a 50% to 60% stenosis at the origin of the left internal carotid. On my review, I am not really able to appreciate any stenosis at all on the source images on the reconstructed images. There is a focal narrowing at the origin of the left internal carotid, but by my measurements, it is closer to about 30%. The patient had a carotid ultrasound about a year ago that showed plaque in both carotid bulbs, but normal velocities and ratios without any significant spectral broadening. IMPRESSION AND RECOMMENDATIONS: The descriptions of perhaps some slurred speech. Some left arm numbness and widely varying descriptions of her visual disturbance abdominally neatly fit into anyone pattern as far as I can recognize and it is certainly not something I would be willing to attribute to the minimal disease demonstrated in her MRA. I do think that she does have enough disease there based on her old ultrasound and her present MRI, but it would be worth doing annual surveillance and in that vein to go ahead and get a carotid ultrasound now to act as a baseline for one in the year, but I would not anticipate recommending carotid endarterectomy at this point. Job ID: [id number]
[2018-10-15] MEDS ORDERED: Atorvastatin Calcium 40 MG TAB PO SCH (21:00)
--- NOTE | 2018-10-16 05:26 | PDOC.FM ---
- Subjective Subjective: Patient denies any visual disturbances since her admission. Also denies any headache, N/V/D, chest pain, or SOB. Is ready to go home today. - Objective MAR Reviewed: Yes Vital Signs & Weight: Vital Signs (12 hours) Temp Pulse Resp BP Pulse Ox 10/16/18 03:57 98.8 F 74 18 120/72 95 10/16/18 00:00 97.9 F 78 18 123/70 96 10/15/18 20:00 97.6 F 75 19 113/75 96 Weight Weight 62.505 kg I&O: 10/14/18 10/15/18 10/16/18 06:59 06:59 06:59 Intake Total 1911 Balance 1911 Result Diagrams: 10/15/18 05:12 10/16/18 05:28 Phys Exam - Physical Examination Constitutional: NAD HEENT: PERRLA, moist MMs Neck: supple, full ROM Respiratory: no wheezing, no rales, no rhonchi, clear to auscultation bilateral Cardiovascular: RRR, no significant murmur Gastrointestinal: positive bowel sounds Neurological: non-focal, moves all 4 limbs Psychiatric: normal affect, A&O x 3 Skin: no rash, normal turgor Dx/Plan (1) History of CVA (cerebrovascular accident) Code(s): Z86.73 - PRSNL HX OF TIA (TIA), AND CEREB INFRC W/O RESID DEFICITS Status: Chronic (2) History of tobacco use Code(s): Z87.891 - PERSONAL HISTORY OF NICOTINE DEPENDENCE Status: Chronic (3) Hypertension Code(s): I10 - ESSENTIAL (PRIMARY) HYPERTENSION Status: Chronic (4) TIA (transient ischemic attack) Status: Ruled-out (5) HTN (hypertension) Code(s): I10 - ESSENTIAL (PRIMARY) HYPERTENSION Status: Acute (6) Hypokalemia Code(s): E87.6 - HYPOKALEMIA Status: Acute - Plan Plan: 78 yo F with hx of prior CVA here for TIA rule out. Suspected TIA - CT on admission showed only chronic small vessel changes. - Carotid doppler from 10/2017 showed plaque formation but no significant stenosis. Will get a repeat today per CV surg recs. See plan below. - CTA of head & neck showed 50-60% stenosis of L ICA. No surgical intervention indicated at this time per CV surg. Appreciate recs. - MRI pending for today. - TTE showed 55-60% EF w/ diastolic dysfunction. - A1c & FLP WNLs. - Will continue ASA 81mg & atorvastatin 40mg QD. PVD: - Confirmed on CTA yesterday which found 50-60% stenosis of L ICA. - Per CV surg no need for surgical intervention at this time. Will get carotid dopplers per their recs to establish baseline stenosis levels for continued surveillance. - Will continue ASA & statin. HTN: - Will d/c home meds as BP has been well-controlled since admission. Hypokalemia - BMP pending for today. - Will continue to monitor & replace PRN. Polycythemia - Resolved s/p IVFs. dvt ppx: lovenox diet: dispo: Anticipate likely d/c home today after MRI and carotid dopplers w/ close follow-up of carotid artery stenosis.
[2018-10-16 06:07] LABS: Anion Gap 7 mmol/L (10-20); BUN (Urea Nitrogen) 9 mg/dL (9.8-20.1); Calc. Creatinine Clearance 61 mL/min (70-130); Calcium 9.6 mg/dL (7.8-10.44); Carbon Dioxide 27 mmol/L (23-31); Chloride 106 mmol/L (98-107); Estimated GFR-MDRD 77; Glucose 111 mg/dL (83-110); Potassium 3.2 mmol/L (3.5-5.1); Sodium 137 mmol/L (136-145)
[2018-10-16] MEDS ORDERED: Potassium Chloride 20 MEQ TAB PO SCH ×2 (08:00→12:00)
[2018-10-16] MEDS ORDERED: Metoprolol Tartrate 50 MG TAB PO SCH (09:00)
[2018-10-16] MEDS ORDERED: Hydrochlorothiazide 25 MG TAB PO SCH (09:00)
[2018-10-16] MEDS: Aspirin 81 mg Enteric Coated Tablet PO SCH (09:47)
[2018-10-16] MEDS: Enoxaparin Sodium 40 MG/0.4 ML SYRINGE SC SCH (09:47)
--- NOTE | 2018-10-16 10:44 | ULT ---
STANDARD CAROTID DOPPLER ULTRASOUND: HISTORY: Evaluate stenosis. TIA. COMPARISON: None. FINDINGS: There is no definite flow seen within the right vertebral artery. The left vertebral artery is paten t with antegrade flow. No elevated peak systolic velocities within the internal carotid arteries. IMPRESSION: 1. No hemodynamically significant stenosis seen in the internal carotid arteries on the ultrasound e xamination. Please see prior magnetic resonance angiogram. 2. No definite fluid seen within the right vertebral artery. POS: TPC
--- NOTE | 2018-10-16 12:21 | MRI ---
MRI BRAIN: CLINICAL HISTORY: TIA. COMPARISON: Reference made to head CT from 10/14/2018. FINDINGS: There is mild enlargement of the ventricular system. Encephalomalacia with associated hemosiderin de position is centered about the cerebellar vermis and cerebellar hemispheres, left greater than right. There is effacement of the cerebral sulci, involving the posterior right cerebral hemisphere, with mild overlying FLAIR hyperintensity. There is subtle susceptibility of this region, in a linear conf iguration, also demonstrated. There is moderate chronic ischemic disease of the cerebral white matte r. No shift of midline. There is no pathologic intraaxial enhancement. A bur hole is seen at the r ight frontal calvarium. IMPRESSION: 1. No acute territorial infarction or mass effect. 2. Sulcal effacement with overlying FLAIR hyperintensity and linear susceptibility at the posterior right convexity. This may be on the basis of a small extraaxial collection. This could relate to a chronic process, as hyperdensity is not seen in this region on the CT examination from the previous d ay. The possibility of interval development of extraaxial hematoma cannot be entirely excluded. Thi s could be further assessed with a follow-up head CT to exclude this process, given the MRI findings. 3. Moderate chronic ischemic disease. 4. Encephalomalacia with hemosiderin deposition at the posterior fossa. POS: C
--- NOTE | 2018-10-16 12:51 | PRG ---
DATE OF SERVICE: 10/16/2018 Ms. 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 We asked for a opinion from CV surgery and they believe that surgery is not indicated at this time and are not certain that the symptoms that the patient had were related. We will therefore continue intensive medical therapy with aspirin and atorvastatin, blood pressure control. We are getting an MRI today to ensure that she did not have a stroke, afterwards after she can be discharged. She will need yearly carotid Dopplers to follow her 60% internal carotid lesion. Job ID: [id number]
[2018-10-16 16:08] VITALS: BP 102/66; TEMP 97.6
--- NOTE | 2018-10-16 16:49 | CT ---
CT HEAD WITHOUT CONTRAST: COMPARISON: 10/14/2018 CORRELATION: Brain MRI from 10/16/2018. FINDINGS: On the MRI performed earlier today, there is FLAIR hyperintensity with sulcal effacement along the ri ght parietal region. On the noncontrast head CT, there is no corresponding hyperdensity. There are stable brain parenchymal changes involving the left cerebellar hemisphere, as well as the cerebral wh ite matter. There is no acute parenchymal hemorrhage or extraaxial hematoma. There is no midline sh ift. There is no evidence of hydrocephalus. The calvarium is intact. IMPRESSION: No CT evidence of acute intracranial hemorrhage. There is no CT correlate with the FLAIR hyperintens ity noted in the extraaxial space and sulci along the right parietal convexity. If there is concern for possible infection, consider lumbar puncture. POS: BRANDEE
--- NOTE | 2018-10-17 12:00 | DIS ---
DATE OF ADMISSION: 10/14/2018 DATE OF DISCHARGE: 10/16/2018 RESIDENT: Emelyn Mejia MD CONSULTS: Surgery, Ceasar Avendaño MD PROCEDURES: 1. Brain CT on 10/14/2018, which noted no acute intracranial abnormality, but stable chronic ischemic changes. 2. Echocardiogram on 10/15/2018, which noted an estimated EF of 55% to 60% with impaired relaxation compatible with diastolic dysfunction. 3. 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 4. Neck MRA, which noted approximately 50% to 60% origin, left ICA stenosis. 5. Brain MRI on 10/15/2018, which noted no acute territorial infarct or mass, but moderate chronic ischemic disease with sulcal effacement with overlying FLAIR hyperintensity and linear susceptibility at the posterior right convexity. This may be on the basis of small extra-axial collection. This could relate to a chronic process, as hyperdensity is not seen in this region on the CT exam for the previous day. The possibility of interval development of extra-axial hematoma cannot be entirely excluded. This could be further assessed with a followup head CT to exclude the process, given the MRI findings. 6. Carotid Doppler study on 10/16/2018, which noted no hemodynamically significant stenosis seen in the internal carotids. 7. Brain CT on 10/16/2018, which showed no CT evidence of acute intracranial hemorrhage. PRIMARY DIAGNOSES: 1. Suspected transient ischemic attack. 2. Heart failure with preserved ejection fraction. 3. Hypokalemia. SECONDARY DIAGNOSES: 1. Hypertension. 2. History of cerebrovascular accident. 3. History of tobacco use. DISCHARGE MEDICATIONS: 1. Aspirin 81 mg p.o. daily. 2. Atorvastatin 40 p.o. at bedtime. 3. Potassium chloride 40 mEq p.o. b.i.d. with meals for seven days. DISCONTINUED MEDICATIONS: 1. Hydrochlorothiazide 25 p.o. daily. 2. Potassium chloride 20 mEq p.o. daily. 3. Metoprolol 50 mg p.o. daily. 4. Atorvastatin 10 mg p.o. daily. HOSPITAL COURSE: The patient is an 78-year-old female with a past medical history significant for a reported previous CVA with no residual deficits and hypertension who presented to the emergency department with chief complaint of episodic blurry vision lasting approximately 5-10 minutes that has been ongoing for approximately two weeks prior to presentation. The patient denied any associated numbness, tingling, speech slurring or paralysis during these episodes; however , the patient's daughter reported that she noticed that the patient's "speech was off. " On presentation to the emergency department, the patient's neurologic symptoms had completely resolved. However, routine blood work was obtained as well as a brain CT which was negative for any acute intracranial process. The patient's blood work was significant for a polycythemia with a hemoglobin of 16 and a hypokalemia with a potassium of 3.0. However, given her reported history of a prior CVA, the patient was admitted for close observation overnight in anticipation of a brain MRI the following day as well as imaging of her cerebral and neck vasculature to rule out any potential thrombotic etiology that could explain her visual symptoms. The following day, an echocardiogram as well as a brain and neck MRA and a brain MRI were obtained. The patient's echocardiogram was within normal limits with the exception of diastolic dysfunction. Her neck MRA was significant for a 50% to 60% stenosis noted in the left ICA and her brain MRI did show a possible chronic appearing area of hypodensity in the cerebellum, but no acute changes consistent with an acute CVA. However, due to her positive neck MRA and the fact that the patient was otherwise fairly healthy with no serious uncontrolled comorbidities, Cardiovascular Surgery, Dr. Luis Antonio Avendaño, was consulted to come and evaluate the patient for possible need for surgical intervention to relieve her left ICA stenosis. Later that evening, Dr. Avendaño came and evaluated the patient, but did not recommend any surgical intervention at this time. He did, however, recommend that the patient have carotid Doppler ultrasound performed during her hospital stay to serve as a baseline as she would need annual surveillance to monitor for any progression of her stenosis. Thus, on the date of discharge, carotid Dopplers in conjunction with a repeat brain CT (due to findings described in the MRI above) were obtained, both of which were within normal limits. The patient was therefore cleared for discharge home with instructions for close follow-up with her PCP, Dr. Ortega Jung, within 14 days of discharge. Regarding the patient's abnormal lab values on admission, her polycythemia was noted to resolve after receiving 2 L of IV fluids on the night of admission. In addition, her hypokalemia persisted after potassium was noted to be 3.2 by the day of discharge. The patient was therefore discharged home on 40 mEq of p.o. potassium b.i.d. to take for approximately 1 week & instructed to follow up with her PCP to have a repeat BMP to ensure her potassium level normalizes. DISPOSITION: Stable. DISCHARGE INSTRUCTIONS: 1. Location: Home. 2. Diet: Heart healthy diet. 3. Activity: Activity as tolerated, no restrictions. 4. Followup: The patient was instructed to follow up with her PCP, Dr. Ortega Jung, within two weeks of discharge. In addition, it was recommended that the patient to follow up with an custodial officer upon discharge for further evaluation of her transient blurred vision. Job ID: [id number] [facility] JEW[facility] MEDICAL CENTERJudy
== END 2018-10-16 17:14 | disposition home or self-care (01) ==
LOC: ERS 14:58 → 2SE 20:14
PROVIDERS: ADMIT Family Medicine; ATTEND Family Medicine
DX: H53.8 Other visual disturbances (principal); I11.0 Hypertensive heart disease with heart failure; I50.30 Unspecified diastolic (congestive) heart failure; E87.6 Hypokalemia; D75.1 Secondary polycythemia; Z79.82 Long term (current) use of aspirin; Z79.899 Other long term (current) drug therapy; Z86.73 Personal history of transient ischemic attack (TIA), and cerebral infarction without residual deficits; Z87.891 Personal history of nicotine dependence
CPT/HCPCS: 70450 ×2; 70544; 70549; 70553; 80048 ×2; 80053; 80061; 83036; 83735; 84484; 85025 ×2; 85610; 85652; 85730; 86140; 93005; 93306; 93880; 96365; 96366; 96372 ×2; 99285; G0378; 36415; 81003; 81015; A9577; J1650; J3480

== ENCOUNTER 2019-03-25 19:17 | Observation (INO) | payer MEDICARE ==
[~2019-03-25 19:17] MED LIST: ISOVUE-370 76%-LOCM 1 ML ONE
--- NOTE | 2019-03-25 19:33 | CT ---
CT HEAD WITHOUT CONTRAST: INDICATIONS: Stroke alert. Right-sided weakness and slurred speech, which has resolved. COMPARISON: CT head from 10/16/2018. FINDINGS: Volume loss in the left cerebellum is stable from prior exam, consistent with old insult. There is no evidence of acute mass or hemorrhage. There is no evidence of acute cortical infarct. C hronic ischemic white matter changes appear stable. There is a craniotomy defect, consistent with a bur hole, in the right frontal bone, which is again noted. IMPRESSION: No evidence of acute infarct. Findings relayed to Dr. Gallego at 7:25 p.m. CODE CR POS: CHAS
[2019-03-25 19:42] LABS: Mean Corpuscular HGB CONC 34.2 g/dL (32.0-36.0); Mean Corpuscular Hemoglobin 30.6 pg (27.0-31.0); Mean Corpuscular Volume 89.5 fL (78.0-98.0); Mean Platelet Volume 6.5 fL (7.4-10.4); Platelet Count 230 thou/uL (130-400); RBC Distribution Width 13.1 % (11.5-14.5); White Blood Cell (WBC) Count 5.5 thou/uL (4.8-10.8)
[2019-03-25 19:47] LABS: Prothrombin Time 13.2 SEC (12.0-14.7)
[2019-03-25 19:48] LABS: PTT 27.7 SEC (22.9-36.1)
[2019-03-25 19:52] LABS: ALT (SGPT) 14 U/L (8-55); AST (SGOT) 20 U/L (5-34); Alkaline Phosphatase 98 U/L (40-150); Anion Gap 10 mmol/L (10-20); BUN (Urea Nitrogen) 17 mg/dL (9.8-20.1); Bilirubin, Total 1.1 mg/dL (0.2-1.2); CK (CPK) 43 U/L (29-168); Calc. Creatinine Clearance 0 mL/min (70-130); Calcium 9.8 mg/dL (7.8-10.44); Carbon Dioxide 29 mmol/L (23-31); Chloride 101 mmol/L (98-107); Estimated GFR-MDRD 59; Glucose 129 mg/dL (83-110); Potassium 3.4 mmol/L (3.5-5.1); Sodium 137 mmol/L (136-145)
[2019-03-25 20:07] LABS: Band 1 % (5-11); Eosinophils 1 % (0-10); Lymphocytes 9 % (21-51); MDiff Complete? YES; Monocytes 17 % (0-10); Neutrophil 66 % (42-75); Platelet Morphology Comment Appears Adequate; Polychromasia SLIGHT = 2-3 cells (100X) (0-2/hpf); Reactive Lymphocytes 6 % (0-10)
--- NOTE | 2019-03-25 20:28 | PDOC.FPRHP ---
- History of Present Illness Chief Complaint: stroke History of Present Illness: Ms. Macario is an 79 yoF who arrived to [facility] via helicopter after acute onset of right sided weakness with right facial at 1800 on 03/25/19. Symptoms lasted a couple minutes before resolving. When EMS arrived 20 minutes later it happened again and resolved again within minutes. The decision was made to airlift her to [facility], as she lives in [place]. She has had previous episodes like this. ED Course: asa 325mg - Allergies/Adverse Reactions Allergies Allergy/AdvReac Type Severity Reaction Status Date / Time No Known Allergies Allergy Verified 10/31/17 12:46 - Home Medications Medication Instructions Recorded Confirmed Type Aspirin [Isis Chewable Aspirin] 81 mg PO DAILY 10/31/17 03/26/19 History Atorvastatin Calcium [Lipitor] 40 mg PO HS #30 tab 10/15/18 03/26/19 Rx Hydrochlorothiazide 1 tab PO DAILY 03/26/19 03/26/19 History Potassium Chloride [K-Dur] 20 meq PO DAILY 03/26/19 03/26/19 History - History PMHx: HTN HLD TIA H/o Stroke 1984 PSHx: Aneurysm repair - 1984 FHx: Father - DMII, HTN Social: Remote smoking history, stopped in 1984. - Review of Systems General: denies: fever/chills, weight/appetite/sleep changes, fatigue Eyes: denies: eye pain, vision changes ENT: denies: nasal congestion, rhinorrhea Respiratory: denies: cough, congestion, shortness of breath Cardiovascular: denies: chest pain, palpitation, edema, paroxysmal nocturnal dyspnea, orthopnea Gastrointestinal: denies: nausea, vomiting, diarrhea, constipation Genitourinary: denies: incontinence, dysuria, polyuria Skin: denies: rashes, lesions Musculoskeletal: reports: other (weakness). denies: pain Neurological: denies: numbness, syncope, seizure Psychological: denies: anxiety, depression - Vital signs BP: 152/79 HR: 73 RR: 16 Tmax: 98F Pox: 97% on RA Wt: 66.5kg - Physical Exam Constitutional: NAD, awake, alert and oriented HEENT: normocephalic and atraumatic, PERRLA, EOMI, grossly normal vision, grossly normal hearing, MMM Neck: supple, FROM Chest: no-tender to palpation Heart: RRR, normal S1/S2, no murmurs/rubs/gallops, pulses present, no edema Lungs: CTAB, no respiratory distress, good air movement, no rales/rhonchi, no wheezing Abdomen: soft, non-tender, bowel sounds present Musculoskeletal: normal structure, normal tone, ROM grossly normal Neurological: no focal deficit, CN II-XII intact, normal sensation Skin: no rash/lesions, good turgor Heme/Lymphatic: no unusual bruising or bleeding, no purpura Psychiatric: normal mood and affect, good judgment and insight, intact recent and remote memory FMR H&P: Results - Labs Result Diagrams: 03/25/19 19:30 03/25/19 19:30 Lab results: WBC 5.5 thou/uL (4.8-10.8) 03/25/19 19: Hgb 15.0 g/dL (12.0-16.0) 03/25/19:30 Hct 43.8 % (36.0-47.0) 03/25/19: MCV 89.5 fL (78.0-98.0) 03/25/19:30 Plt Count 230 thou/uL (130-400) 03/25/19 19:30 Band Neuts % (Manual) 1 % (5-11) L 03/25/19 19:30 Sodium 137 mmol/L (136-145) 03/25/19 19:30 Potassium 3.4 mmol/L (3.5-5.1) L 03/25/19: Chloride 101 mmol/L (98-107) 03/25/19 19:30 Carbon Dioxide 29 mmol/L (23-31) 03/25/19 19:30 BUN 17 mg/dL (9.8-20.1) 03/25/19 19:30 Creatinine 0.91 mg/dL (0.6-1.1) 03/25/19 19:30 Glucose 129 mg/dL (83-110) H 03/25/19 19:30 Calcium 9.8 mg/dL (7.8-10.44) 03/25/19 19:30 Total Bilirubin 1.1 mg/dL (0.2-1.2) 03/25/19 19:30 AST 20 U/L (5-34) 08/06/19 19:30 ALT 14 U/L (8-55) 03/25/19 19:30 Alkaline Phosphatase 98 U/L (40-150) 03/25/19 19:30 Creatine Kinase 43 U/L (29-168) 03/25/19 19:30 Serum Total Protein 8.0 g/dL (6.0-8.3) 03/25/19 19:30 Albumin 4.0 g/dL (3.4-4.8) 03/25/19 19:30 - EKG Interpretation EKG: Normal sinus rhythm - Radiology Interpretation CT scan - head Status: report reviewed by me (no acute infarct) Other Status: report reviewed by me (CTA Head and Neck: atherosclerotic changes in both carotids. No significan stenosis in either ICA. Dominant left vert) FMR H&P: Upper Level - Pertinent history 79 yo f presents with right sided facial droop and right sided weakness with hx of CVA and TIAs, recently worked up for CVA/TIA in 09/2018. - Pertinent findings HR 72 BP 147/113 RR 17 O2sat: 100%RA PE: NAD a&ox3 CN2-12 intact 5/5 strength in UE and LE b/l, sensation in UE and LE intact B/L RRR CTAB CT head w/o contrast: no acute findings CTA head/neck no acute findings EKG: normal sinus rhythm - Plan Date/Time: 03/25/192026 79 you female admitted for CVA rule out. CVA rule out- -suspect TIA, as sx have resolved -will admit to stroke and order an MRI for tomorrow -she recently had an echo 6 mo ago that showed diastolic dysfunction and EKG today show NSR -will order hba1c, mg, phosph, tsh, lipid panel -will place on a high intensity statin as she has chronic ischemic changes -we will allow for permissive hypertension and if a stroke seen on MRI, will consult neuro at that time Incidental pulmonary nodule- -Ordered CT chest w/o contrast, recommended 6 mo follow-up. See actuarial intern note for chronic problems Pb Rojas MD, PGY-3
--- NOTE | 2019-03-25 20:28 | CT ---
CTA HEAD WITH CONTRAST: Date: 03/25/19 Multiple axial tomograms obtained through head following cerebral angio protocol with multiplanar rec onstruction and 3D postprocessing. INDICATION: Stroke alert. Right sided weakness and slurred speech. FINDINGS: The intracranial internal carotid arteries appear patent and symmetric. The middle cerebral arteries appear patent. M2 and M3 branches appear symmetric. Anterior cerebral arteries are patent. Basilar artery is patent. Posterior cerebrals appear symmetric. IMPRESSION: No evidence of proximal cerebral artery stenosis or occlusion. CTA NECK: Axial tomograms are obtained with multiplanar reconstruction and 3D postprocessing. INDICATION: Stroke alert. FINDINGS: No stenosis at the origin of the arch vessels. Both common carotid arteries are patent and symmetric. There are atherosclerotic changes in both carotid bulbs and proximal ICAs with calcified plaque and s oft plaque bilaterally. However, there is no significant stenosis identified in either internal carot id artery by NASCET criteria. There is a dominant left vertebral. Vertebrals appear patent. Review of lung windows reveals a 5 mm noncalcified nodule in the left upper lobe. There is an ill-def ined ground-glass nodular opacity also seen in the left upper lobe measuring approximately 1.0 cm. A calcified granuloma in the left upper lobe measures approximately 3 mm. No other soft tissue abnormality. IMPRESSION: 1. Atherosclerotic changes seen in both carotid bulbs and proximal ICAs; however, no significant sayra nosis identified in either ICA. 2. Nodularity in the left upper lobe of the lung. Recommend elective follow-up chest CT. CODE LN. POS: AGW
[2019-03-25] MEDS ORDERED: Aspirin Chewable 81 MG TAB ONE (20:33)
[2019-03-25 20:50] LABS: Bacteria/HPF None Seen HPF (None Seen); Bilirubin Negative (Negative); Blood, Urine 1+ (Negative); Clarity Clear (Clear); Glucose, Urine (Dipstick) Normal (Negative); Leukocyte Negative Leu/uL (Negative); Nitrite Negative (Negative); Protein, Urine (Dipstick) Negative (Neg-Trace); RBC/HPF 0-3 HPF (0-3); Squamous Epithelial 0-3 HPF (0-3); Urobilinogen Normal mg/dL (Less than 2); WBC/HPF 0-3 HPF (0-3)
[2019-03-25] MEDS ORDERED: Calcium Carbonate 500 MG ChewTAB PO PRN (21:51)
[2019-03-25] MEDS ORDERED: Acetaminophen 325 MG TAB PO PRN (21:51)
[2019-03-25] MEDS ORDERED: Ondansetron ODT 4 MG TAB PO PRN (21:51)
[2019-03-25] MEDS ORDERED: Senokot S 8.6-50 MG TAB PO PRN (21:51)
--- NOTE | 2019-03-25 23:35 | CT ---
CT CHEST WITHOUT CONTRAST: 03/25/2019 HISTORY: Pulmonary nodule. COMPARISON: None. TECHNIQUE: Axial CT imaging at 5 mm intervals, through the chest, without contrast. Coronal reformatted imaging obtained. FINDINGS: Lack of contrast limits assessment of the imaged viscera and the vascular structures and for lymphade nopathy. There is elevation of the right hemidiaphragm. There is scattered atherosclerotic calcification of the imaged abdominal aorta. No pleural, pericard ial, or mediastinal fluid is seen. Limited assessment for lymphadenopathy is unremarkable. There is scattered atherosclerotic calcification involving the proximal great vessels, the aortic arch, and t he descending thoracic aorta, as well as the coronary arteries. There is no pneumothorax noted on either side. There is a tiny nodule within the left upper lobe on image 14, measuring in the 2 mm range. There is a vague ground glass nodule in the left upper lobe, measuring approximately 7 mm, best seen on axial image 19. There is mild increased linear interstitial density noted in both lower lobes. No endobronchial lesion is evident on either side. Review of the osseous structures demonstrates no acute findings. IMPRESSION: Vague ground glass nodule in the left upper lobe, as detailed above. Recommend follow-up imaging in six months. POS: BRANDEE
[2019-03-26 01:53] VITALS: BMI 24.6
[2019-03-26 05:09] LABS: Hemoglobin A1c 5.3 % (4.0-6.0)
[2019-03-26 05:24] LABS: Cardiac Risk 1.9 (Less than 4.5); Cholesterol 104 mg/dl (< 200 Desired); HDL Cholesterol 54 mg/dL (>60 Neg Risk); LDL Cholesterol, Calculated 34 mg/dL; Magnesium 1.7 mg/dL (1.6-2.6); Phosphorus 3.1 mg/dL (2.3-4.7); Triglycerides 78 mg/dL (Less than 150)
--- NOTE | 2019-03-26 06:36 | PDOC.FM ---
- Subjective Subjective: Pt doing well, no concerns or complaints. Sxs completely resolved. She is eager to be discharged home. No fevers/chills, n/v/d/c, SOB, CP. No neurologic changes overnight. - Objective MAR Reviewed: Yes Vital Signs & Weight: Vital Signs (12 hours) Temp Pulse Resp BP Pulse Ox 03/26/19 04:00 97.5 F L 72 19 141/71 H 94 L Weight Weight 65.119 kg I&O: 03/24/19 03/25/19 03/26/19 06:59 06:59 06:59 Intake Total 420 Output Total 300 Balance 120 Result Diagrams: 03/25/19 19:30 03/25/19 19:30 Phys Exam - Physical Examination Constitutional: NAD HEENT: moist MMs Neck: supple Respiratory: no wheezing, no rales, no rhonchi, clear to auscultation bilateral Cardiovascular: RRR, no significant murmur, no rub Gastrointestinal: soft, non-tender, no distention, positive bowel sounds Musculoskeletal: no edema 5/5 strength throughout Neurological: normal sensation, moves all 4 limbs CN II-XII intact, no dysdiadokinesia, no focal deficit Psychiatric: normal affect, A&O x 3 Dx/Plan (1) Pulmonary nodule, left Code(s): R91.1 - SOLITARY PULMONARY NODULE Status: Acute (2) History of CVA (cerebrovascular accident) Code(s): Z86.73 - PRSNL HX OF TIA (TIA), AND CEREB INFRC W/O RESID DEFICITS Status: Chronic (3) Hypertension Code(s): I10 - ESSENTIAL (PRIMARY) HYPERTENSION Status: Chronic - Plan Plan: 79yo F with h/o HTN, HLD, CVA and TIA who presented with right sided weakness and facial droop that has since resolved. 1. Suspected TIA - Sxs fleeting and since resolved. History of TIA - CT Head w/o no acute changes, CTA head and neck atherosclerosis with no significant stenosis - MRI no acute changes or infarct, gliotic changes of left cerebellar hemisphere unchanged from previous - Echo 6mo ago with diastolic dysfunction with preserved EF. EKG NSR. - A1C, lytes, TSH, Lipid panel WNL - Continue high intensity statin and asa - Permissive HTN, will restart home meds upon d/c 2. Incidental pulmonary nodule - 2mm and 7mm nodules in left lung. Recommend 6mo OP f/u with re-imaging 3. HTN - Permissive HTN. Will restart home meds on DC. Diet: HH VTE: Lovenox Code:Full Dispo: Discharge this afternoon. Addendum - Attending - Attending Attestation Date/Time: 03/26/19 3114 I personally evaluated the patient and discussed the management with Dr. Mini Khan. I agree with the History, Examination, Assessment and Plan documented above with any addition or exceptions noted below. Grossly normal neuro exam. TIA- MRI without evidence of infarct- patient stopped her aspirin 2-3 months ago because she didn't know why she was taking it. We discussed need for high intensity statin and antiplatelet therapy with ASA 81 mg for secondary prevention. She expressed understanding. HTN- stable CT pulmonary nodule- recommend repeat scan in 6 months. Stable for d/c home. Encouraged family to be present for the next 48-72 hours as she does have a possibiliity of conversion of TIA to CvA. REturn precautions discussed.
[2019-03-26] MEDS ORDERED: Potassium Chloride 20 MEQ TAB PO SCH (06:45)
[2019-03-26] MEDS ORDERED: Prevnar 13-Val Conj/PF 0.5 ML SYRINGE IM ONE (09:00)
[2019-03-26] MEDS ORDERED: Aspirin Chewable 81 MG TAB PO SCH (09:00)
[2019-03-26] MEDS ORDERED: Enoxaparin Sodium 40 MG/0.4 ML SYRINGE SC SCH (09:00)
--- NOTE | 2019-03-26 09:15 | MRI ---
Exam: Brain MRI without contrast HISTORY: Transient ischemic attack COMPARISON: 10/16/2018, 10/31/2017 FINDINGS: Calvarial marrow signal intensity: Appropriate T1 signal Gradient echo sequence: Hemosiderin deposition the cerebellar vermis and medial left cerebellar hemis phere, due to remote insult Brain parenchyma: With regard to the cerebrum, no mass, mass effect or midline shift. Age-appropriate atrophy. There is malacic and gliotic change involving the left cerebellar hemisphere and cerebellar vermis, due to remote insult. Cortical holland-white matter differentiation: Preserved Restricted diffusion: Central arterial flow voids are maintained. Absent restricted diffusion White matter signal intensities: T2, FLAIR white matter hyperintensities due to chronic small vessel ischemic changes Sinuses: Adequate aeration of the paranasal sinuses and mastoid air cells. IMPRESSION: 1. Absent restricted diffusion. No acute infarct. 2. Malacic and gliotic changes involving the left cerebellar hemisphere and to a lesser extent cerebe llar vermis, unchanged
[2019-03-26 11:56] VITALS: BP 110/63; TEMP 97.7
[2019-03-26] MEDS ORDERED: Atorvastatin Calcium 40 MG TAB PO SCH (21:00)
--- NOTE | 2019-03-27 00:57 | DIS ---
DATE OF ADMISSION: 03/25/2019 DATE OF DISCHARGE: 03/26/2019 RESIDENT: Anthony Khan MD ADMITTING ATTENDING: Brendan Sevilla MD DISCHARGE ATTENDING: Fatoumata Sim MD CONSULTS: None. PROCEDURES PERFORMED: 1. Brain CT on 03/25/2019, showed no evidence of acute infarct. 2. CT angio head and neck on 03/25/2019. No stenosis at the origin of the arch vessels. Atherosclerotic changes seen in both carotid bulbs and proximal ICAs, however, no significant stenosis identified in either ICA. Nodularity in the left upper lobe of the lung. 3. CT chest on 03/25/2019. Vague ground-glass nodule in the left upper lobe measuring approximately 7 mm, as well as tiny nodule in the left upper lobe measuring [address] chest in six months for followup. 4. Brain MRI on 03/26/2019. Absence of restricted diffusion. No acute infarct. Malacic and gliotic changes involving the left cerebellar hemisphere and to a lesser extent cerebellar vermis that are unchanged from previous imaging. PRIMARY DIAGNOSES: 1. Transient ischemic attack. 2. Left lung lobe pulmonary nodule. SECONDARY DIAGNOSES: 1. Hypertension. 2. Hyperlipidemia. DISCHARGE MEDICATIONS: 1. Aspirin 81 mg p.o. daily. 2. Atorvastatin 40 mg p.o. at bedtime. 3. Hydrochlorothiazide 25 mg p.o. daily. 4. Potassium 20 mEq p.o. daily. DISCONTINUED MEDICATIONS: None. HOSPITAL COURSE: The patient is an 79-year-old female, who presented to the emergency department via helicopter for right-sided weakness and facial droop beginning on 03/25/2019. Symptoms lasted a few minutes for complete resolving and when EMS first arrived approximately 20 minutes after the onset of symptoms, she had recurrence of symptoms that resolved within minutes. She was transported to [place] for further evaluation and management. The patient states she has previous episodes similar to this in the past, the last being approximately six months ago and at that time, an entire workup for stroke was negative including echocardiogram. In the ED, she was given 325 mg of aspirin as well to obtain imaging as above. She was admitted for evaluation of TIA versus CVA. Once on the floor, the patient continued to have complete resolution of symptoms and no return of symptoms. Her neurologic exam was completely abnormal and had no focal deficits. The patient did not complain of any chest pain, nausea, blurred vision, pain of any kind. She initially allowed for permissive hypertension and blood pressure medications were held. She was continued on high-dose statin, as well as aspirin. MRI was obtained that was normal as per above. Her EKG was also within normal limits. Electrolytes, as well as hemoglobin A1c and TSH and lipid panel were all within normal limits. The patient most likely had a TIA due to her normal imaging, incomplete resolution of symptoms within minutes of onset. It was then decided that the patient can be discharged home to follow up with primary care physician. At the time of discharge, the patient was doing well and had no concerns or complaints. Discharge plan was discussed with patient, as well as the need to continue her daily aspirin as well as high-intensity statins and maintain proper hypertensive control. The patient was instructed to follow up with her primary care physician within one week of discharge, especially for blood pressure management. The pulmonary nodules also discussed with the patient and the need to follow up with a repeat CT in approximately six months. Daughter was at bedside and present for this discussion as well. The patient and daughter voiced agreement and understanding of discharge plan, and ready to be discharged home. The patient lives with her adult daughter and thus was discharged to her care. DISPOSITION: Stable. DISCHARGE INSTRUCTIONS: 1. Location: Home. 2. Diet: Heart healthy, low-sodium. 3. Activity: As tolerated. 4. Followup: The patient is to followup with her primary care physician within one week of discharge. Job ID: [id number] [email or web address]
== END 2019-03-26 13:58 | disposition home or self-care (01) ==
LOC: ERS 19:17 → 2SE 20:30
PROVIDERS: ADMIT Family Medicine; ATTEND Family Medicine
DX: I65.23 Occlusion and stenosis of bilateral carotid arteries (principal); R91.1 Solitary pulmonary nodule; I10 Essential (primary) hypertension; E78.5 Hyperlipidemia, unspecified; Z86.73 Personal history of transient ischemic attack (TIA), and cerebral infarction without residual deficits; Z87.891 Personal history of nicotine dependence; Z79.82 Long term (current) use of aspirin; Z79.899 Other long term (current) drug therapy
CPT/HCPCS: 70450; 70496; 70498; 70551; 71250; 80053; 80061; 82550; 82962; 83036; 83735; 84100; 84443; 84484; 85025; 85610; 85730; 93005; 96372; 99291; G0378 ×2; 36415; 36416; 81003; 81015; J1650; Q9966

== ENCOUNTER 2019-10-09 16:17 | Emergency (ER) | payer MEDICARE ==
[~2019-10-09 16:17] MED LIST changes: -ISOVUE-370 76%-LOCM 1 ML ONE; +Iopamidol-370 76% 500 ML 1 ML ONE
[2019-10-09] MEDS ORDERED: Clopidogrel Bisulfate 75 MG TAB ONE (20:36)
--- NOTE | 2019-10-09 20:38 | CT ---
CT ANGIO OF HEAD AND NECK PERFORMED WITH INTRAVENOUS CONTRAST ENHANCEMENT WITH 3D RECONSTRUCTIONS 10/09/19 HISTORY: Altered mental status. Stroke symptoms. COMPARISON: Previous CT angio of the head of 03/25/19. The lung apices show a persistent area of ground glass density in the left upper lobe. It measures ap proximately 10 mm in size. It appears stable as compared to the prior examination. This would warrant continued follow-up. The thyroid gland is normal. There is no significant jugular chain adenopathy. Parotid and submandibular gland regions appear unremarkable and parapharyngeal spaces are clear. The angiographic portion of this examination yielded a good study. The left common carotid artery idris ginates at the base of the right innominate. The vertebral arteries show the right vertebral to be oc cluded. This is a stable finding. On the right side, there is atherosclerotic plaque at the origin of the right internal carotid arter y without significant stenosis. On the left side, there is also some moderate atherosclerotic change at the carotid bulb region, again without significant stenosis of the internal or common carotid eva harriett. CT ANGIO OF BRAIN PERFORMED WITH CONTRAST: The anterior and middle cerebral arteries and their branches are patent. No thrombus. No occlusive ch jenniffer. The basilar artery is patent. The left posterior cerebral obtains its flow from a origin of the left posterior cerebral artery from the anterior circulation. The encephalomalacia changes of the le ft cerebellum are noted. IMPRESSION: 1. No evidence of a hemodynamically significant stenosis of either internal carotid artery by NA SCET criteria. 2. 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 3. No evidence of occlusive thrombus or stenosis within the anterior and middle cerebral arterie s or their branches. POS: SHIMON
== END 2019-10-09 20:44 | disposition home or self-care (01) ==
LOC: ERS 16:17
DX: R20.2 Paresthesia of skin (principal); I10 Essential (primary) hypertension; E16.2 Hypoglycemia, unspecified; Z86.73 Personal history of transient ischemic attack (TIA), and cerebral infarction without residual deficits; Z87.891 Personal history of nicotine dependence; Z79.82 Long term (current) use of aspirin; Z79.899 Other long term (current) drug therapy
CPT/HCPCS: 70496; 70498; Q9967

== ENCOUNTER 2020-03-06 13:13 | Observation (INO) | payer MEDICARE, OTHER ==
--- NOTE | 2020-03-06 13:58 | RAD ---
EXAM: Single view of the chest HISTORY: Altered mental status with possible stroke COMPARISON: 10/31/2017 FINDINGS: Single view of the chest shows a normal sized cardiomediastinal silhouette. There is no makeda dence of consolidation, mass, or pleural effusion. The bones are unremarkable IMPRESSION: No evidence of acute cardiopulmonary disease
[2020-03-06 14:09] LABS: Hemoglobin 15.8 g/dL (12.0-16.0); Mean Corpuscular HGB CONC 33.6 g/dL (32.0-36.0); Mean Corpuscular Hemoglobin 30.6 pg (27.0-31.0); Mean Corpuscular Volume 91.2 fL (78.0-98.0); Mean Platelet Volume 6.5 fL (7.4-10.4); Platelet Count 238 thou/uL (130-400); RBC Distribution Width 12.9 % (11.5-14.5); Red Blood Cell (RBC) Count 5.17 mill/uL (4.20-5.40); White Blood Cell (WBC) Count 5.3 thou/uL (4.8-10.8)
[2020-03-06 14:27] LABS: Lymphocytes 7 % (21-51); MDiff Complete? YES; Monocytes 14 % (0-10); Neutrophil 70 % (42-75); Platelet Morphology Comment Appears Adequate; Polychromasia SLIGHT = 2-3 cells (100X) (0-2/hpf); Reactive Lymphocytes 9 % (0-10)
--- NOTE | 2020-03-06 14:31 | CT ---
EXAM: CT brain without contrast HISTORY: Altered mental status with possible stroke. COMPARISON: None TECHNIQUE: Multiple contiguous axial images were obtained and a CT of the brain without contrast. FINDINGS: There are scattered hypodensities in the subcortical and periventricular white matter consi stent with small vessel ischemic disease. Stable encephalomalacia seen in the left cerebellar hemisphere. There is no evidence of hydrocephalus, intracranial hemorrhage, or extra-axial fluid dino ection. There is a valencia hole in the right frontal calvarium. The scalp and soft tissues are unremarkable. The visualized paranasal sinuses and mastoid air cells are well aerated. IMPRESSION: No evidence of acute intracranial abnormality
[2020-03-06 14:32] LABS: ALT (SGPT) 13 U/L (8-55); AST (SGOT) 18 U/L (5-34); Albumin 3.9 g/dL (3.4-4.8); Alkaline Phosphatase 70 U/L (40-110); Anion Gap 10 mmol/L (10-20); BUN (Urea Nitrogen) 14 mg/dL (9.8-20.1); Calc. Creatinine Clearance 0 mL/min (70-130); Calcium 9.6 mg/dL (7.8-10.44); Carbon Dioxide 30 mmol/L (23-31); Chloride 99 mmol/L (98-107); Estimated GFR-MDRD 56; Glucose 103 mg/dL (83-110); Lipase 17 U/L (8-78); Magnesium 1.5 mg/dL (1.6-2.6); Potassium 3.6 mmol/L (3.5-5.1); Protein, Total 7.9 g/dL (6.0-8.3); Sodium 135 mmol/L (136-145)
[2020-03-06 14:51] LABS: Bilirubin Negative (Negative); Blood, Urine Negative (Negative); Clarity Clear (Clear); Glucose, Urine (Dipstick) Normal (Negative); Ketone, Urine Negative (Negative); Leukocyte Negative Leu/uL (Negative); Nitrite Negative (Negative); Protein, Urine (Dipstick) Negative (Neg-Trace); Urobilinogen Normal mg/dL (Less than 2); pH, Urine 7.5 (5.0-9.0)
[2020-03-06 14:54] LABS: CKMB 0.9 ng/mL (0-6.6)
[2020-03-06] MEDS ORDERED: Magnesium 2 GM/50 ML BAG (IN WATER) ONE (14:55)
[2020-03-06] MEDS ORDERED: Senokot S 8.6-50 MG TAB PO PRN (15:34)
[2020-03-06] MEDS ORDERED: Acetaminophen 325 MG TAB PO PRN (15:34)
[2020-03-06] MEDS ORDERED: Atropine Sulfate 0.4 mg/1 ml Vial IVP PRN (15:36)
[2020-03-06 17:03] LABS: SARS-CoV-2 NAA Rapid Test Not Detected (NotDetected)
[2020-03-06 18:24] VITALS: BMI 23.7
[2020-03-06 18:27] LABS: Troponin I 0.026 ng/mL (< 0.028)
[2020-03-06] MEDS: Famotidine/PF 20 mg/2ml Vial SLOW IVP SCH (20:36)
[2020-03-06] MEDS ORDERED: Atorvastatin Calcium 40 MG TAB PO SCH (21:00)
[2020-03-06 21:10] LABS: ALT (SGPT) 11 U/L (8-55); AST (SGOT) 18 U/L (5-34); Albumin 3.7 g/dL (3.4-4.8); Alkaline Phosphatase 66 U/L (40-110); Anion Gap 14 mmol/L (10-20); BUN (Urea Nitrogen) 13 mg/dL (9.8-20.1); Bilirubin, Total 1.1 mg/dL (0.2-1.2); Calc. Creatinine Clearance 51 mL/min (70-130); Carbon Dioxide 22 mmol/L (23-31); Chloride 101 mmol/L (98-107); Estimated GFR-MDRD 65; Globulin 3.9 g/dL (2.4-3.5); Glucose 101 mg/dL (83-110); Potassium 3.3 mmol/L (3.5-5.1); Protein, Total 7.6 g/dL (6.0-8.3); Sodium 134 mmol/L (136-145)
[2020-03-06 21:14] LABS: Troponin I 0.027 ng/mL (< 0.028)
--- NOTE | 2020-03-06 22:36 | CON ---
DATE OF CONSULTATION: HISTORY OF PRESENT ILLNESS: Luz Macario is an 80-year-old white female with previous history of TIAs, admitted here for evaluation. She states that over the last 2 years, she has had episodes where at rest, she will feel somewhat short of breath for 1 or 2 minutes and then this will resolve. She had another such episode today; however, this did not go away. Her daughter called EMS and the helicopter was called thinking that she may have had a stroke with increasing mental confusion. When they arrived, apparently her heart rate was in the 30s; however, there was no documentation that I can find that. They gave atropine and her mental status cleared. She denies any chest discomfort. She denies any previous history of coronary artery disease or heart failure. PAST MEDICAL HISTORY: TIAs, hypertension, hyperlipidemia, and diabetes. PAST SURGICAL HISTORY: Hysterectomy and drainage of breast infection. MEDICATIONS: 1. Aspirin 81 daily. 2. KCl 20 mEq q.a.m. 3. Hydrochlorothiazide 25 daily. 4. Atorvastatin 40 daily. 5. Metoprolol 50 q.a.m. 6. Clopidogrel 75 mg daily, which was added after an ER evaluation in September,. ALLERGIES: NONE. SOCIAL HISTORY: She smoked four or five cigarettes, stopped 30 or 40 years ago. She does not drink. FAMILY HISTORY: Negative for coronary artery disease. REVIEW OF SYSTEMS: A 10-point review of systems unremarkable. PHYSICAL EXAMINATION: VITAL SIGNS: Blood pressure 176/77 and pulse of 63. HEENT: PERRL. NECK: Supple. CHEST: Clear. CARDIAC: S1 and S2 normal without any S3, S4, or murmurs. Carotid upstrokes normal without bruits. ABDOMEN: Normal bowel sounds without tenderness or organomegaly. EXTREMITIES: Revealed no clubbing, cyanosis, or edema. NEUROLOGIC: Grossly intact. SKIN: Warm and dry. LABORATORY DATA: EKG reveals a normal sinus rhythm with sinus arrhythmia and nonspecific ST and T-wave changes. Hemoglobin 15.8, hematocrit 47.1, white count 5300, and platelets 238,000. Sodium 135, potassium 3.6, chloride 99, carbon dioxide 30, BUN 14, and creatinine 0.96. BNP 129.4. TSH is normal. Troponin I 0.037. Urinalysis is unremarkable. COVID screen is negative. Magnesium is mildly low at 1.5. IMPRESSION: 1. Symptomatic bradycardia. It is very unclear to me exactly what her heart rate was. All of the strips that we were able to get from the emergency room show that the lowest heart rate of 49 or 50 per minute. Apparently, no rhythm strips were available from the air evac. We will continued to try to locate those. 2. History of multiple TIAs. She has been evaluated here several times. The most recent was in September 2019 in the ER only and clopidogrel was added to aspirin at that time. 3. Hypertension. 4. Hypercholesterolemia. 5. Former smoker. 6. Hypomagnesemia. RECOMMENDATIONS: At the present time, there is no documentation of any heart rate below about 50, although we are still trying to obtain what I was told was heart rates in the 30s. Also apparently in the emergency room, she had heart rates drop into the 40s. However, once again, that is not documented. To me, the most prudent thing would be to discontinue her metoprolol and use an DONI inhibitor for blood pressure control and continue to monitor her. Echocardiogram will be performed. She certainly may require pacemaker placement. However, if no further bradycardia is documented and the strip showing heart rates in the 30s are not forthcoming, then the best option may be to send her home with a 30-day monitor. She will be continued on the aspirin and clopidogrel. Fasting lipid profile will be obtained. Job ID: [id number] MTDD
--- NOTE | 2020-03-07 00:29 | ULT ---
CAROTID DOPPLER: Date: 03/06/2020 INDICATION: Blurry vision. Ultrasound and Doppler studies performed on the extracranial carotid arteries. Color Doppler and spec tral analysis and velocity recordings obtained. FINDINGS: Ultrasound images show mild echogenic plaque in both bulb regions. Velocity recordings are within normal range bilaterally. Vertebral arteries show antegrade flow. IMPRESSION: 1. Mild to moderate echogenic plaque bilaterally. 2. No evidence of significant stenosis identified by Doppler velocity. POS: AGW
--- NOTE | 2020-03-07 00:31 | HP ---
CHIEF COMPLAINT: Blurry vision. HISTORY OF PRESENT ILLNESS: The patient is an 80-year-old female, who lives in [place], who was actually air evac for possible stroke. The patient apparently was having spots, she was seeing spots, which has been going on for the past couple months. However, she stated that today her spot changes in her vision, kept persisting and it did not go away. At this time, EMS was called. There was a concern for possible stroke. [facility] was notified. When they got there to the scene, the patient was found to be bradycardic and the heart rate in the 30s. At this time, the patient was given atropine and the patient's apparently mental status also was changed, but the mental status improved. The patient does not recall that I repeatedly asked her, but she only stated that she had some blurry vision. The patient denies any recent fatigue, any palpitations, any nausea, vomiting, or diarrhea. She states that she has been feeling well. She states that she has been in her usual self. Denies any recent illnesses. Denies any chest tightness, any shortness of breath. PAST MEDICAL HISTORY: She has a history of hypertension. Denies any other cardiac history. She has a history of TIA that was noted in her past admissions. Also, TIA as I mentioned. She has hypertension, hyperlipidemia, TIA, and history of stroke in 1984 per history. REVIEW OF SYSTEMS: All negative except for the ones mentioned above in HPI. FAMILY HISTORY: Father has diabetes and hypertension. SOCIAL HISTORY: She has a history of remote smoking history, stopping in 1984. Denies any alcohol use or drug use. PAST SURGICAL HISTORY: She has had an aneurysm repair in 1984. MEDICATIONS: As per records indicates she is on; 1. Hydrochlorothiazide 25 mg daily. 2. Potassium 20 mEq daily. 3. Aspirin 81 mg daily. 4. Atorvastatin 40 mg p.o. daily. PHYSICAL EXAMINATION: VITAL SIGNS: 98.0, 63, 18, 100% on room air, and 176/77. GENERAL: She is awake, alert, and oriented x3. Does not appear in any distress. CV: S1 and S2 present. No murmurs, rubs, or gallops. She is currently sinus eusebia in the 60s. LUNGS: Clear to auscultation. No rhonchi or wheezes noted. ABDOMEN: Soft and nontender. Bowel sounds are present x2. EXTREMITIES: No edema pedal pulses are present x2. NEUROVASCULAR: No focal deficits noted. SKIN: No cuts, lesions, or bruises noted. LABORATORY DATA: Her laboratory results are as of the following; WBCs of 5.3, hemoglobin of 15.8, hematocrit of 47.1, and platelets of 238. Her chemistry indicates sodium of 135, potassium of 3.6, BUN of 14, creatinine 0.96, and her magnesium was 1.5, which has been replaced. Her troponin initially was 0.037, then went down to 0.026. Her BNP was 129. Her TSH was 1.6. Her lipase was 17. Her urine was completely normal. Her COVID test was negative. She had a CT head and a chest x-ray. The CT head did not show any acute abnormalities. Her chest x-ray was essentially normal. ASSESSMENT: The patient is an 80-year-old female, who presents to the hospital with a change in mental status and also blurry vision, who was found to be bradycardic. 1. Acute metabolic encephalopathy. 2. Bradycardia, symptomatic. 3. Blurry vision, which has resolved. 4. Hypertension. 5. History of transient ischemic attacks. PLAN: We will go ahead and consult Cardiology. Admit her to tele. I have ordered p.r.n. atropine if needed. The patient has to be evaluated. We will get an echocardiogram. We will also go ahead and get an MRI brain to see if there is any signs of strokes since she did have significant changes in her vision, but this most likely possibly secondary to her being bradycardic. The patient is actually back to her baseline right now. We will continue her home medications. Physical Therapy for evaluation. We will check a TSH and her labs have been ordered. We will put enoxaparin for DVT prophylaxis. Job ID: [id number]
[2020-03-07 04:34] LABS: Anion Gap 11 mmol/L (10-20); BUN (Urea Nitrogen) 13 mg/dL (9.8-20.1); Calc. Creatinine Clearance 49 mL/min (70-130); Carbon Dioxide 25 mmol/L (23-31); Cardiac Risk 2.9 (Less than 4.5); Chloride 102 mmol/L (98-107); Cholesterol 153 mg/dl (< 200 Desired); Estimated GFR-MDRD 62; Glucose 106 mg/dL (83-110); HDL Cholesterol 52 mg/dL (>60 Neg Risk); LDL Cholesterol, Calculated 76 mg/dL; Potassium 3.3 mmol/L (3.5-5.1); Sodium 135 mmol/L (136-145); Triglycerides 124 mg/dL (Less than 150)
[2020-03-07 06:06] LABS: Band 1 % (5-11); Lymphocytes 15 % (21-51); MDiff Complete? YES; Mean Corpuscular Hemoglobin 30.8 pg (27.0-31.0); Mean Corpuscular Volume 90.4 fL (78.0-98.0); Monocytes 12 % (0-10); Neutrophil 72 % (42-75); Platelet Count 217 thou/uL (130-400); Red Blood Cell (RBC) Count 4.88 mill/uL (4.20-5.40); White Blood Cell (WBC) Count 6.5 thou/uL (4.8-10.8)
[2020-03-07] MEDS ORDERED: Sodium Chloride 0.9% 10 ML ONE (07:34)
[2020-03-07] MEDS: Enoxaparin Sodium 40 MG/0.4 ML SYRINGE SC SCH (08:39)
[2020-03-07] MEDS: Famotidine/PF 20 mg/2ml Vial SLOW IVP SCH ×2 (08:39→20:23)
[2020-03-07] MEDS: Aspirin Chewable 81 MG TAB PO SCH (08:39)
[2020-03-07] MEDS ORDERED: Potassium Chloride 20 MEQ TAB PO SCH (08:45)
[2020-03-07] MEDS ORDERED: Prevnar 13-Val Conj/PF 0.5 ML SYRINGE IM ONE (09:00)
[2020-03-07 09:13] LABS: ALT (SGPT) 11 U/L (8-55); AST (SGOT) 18 U/L (5-34); Albumin 3.9 g/dL (3.4-4.8); Alkaline Phosphatase 68 U/L (40-110); Anion Gap 9 mmol/L (10-20); BUN (Urea Nitrogen) 13 mg/dL (9.8-20.1); Bilirubin, Total 1.2 mg/dL (0.2-1.2); Calc. Creatinine Clearance 40 mL/min (70-130); Calcium 9.5 mg/dL (7.8-10.44); Carbon Dioxide 30 mmol/L (23-31); Chloride 98 mmol/L (98-107); Estimated GFR-MDRD 49; Glucose 164 mg/dL (83-110); Protein, Total 7.9 g/dL (6.0-8.3); Sodium 134 mmol/L (136-145)
[2020-03-07] MEDS ORDERED: Lisinopril 10 MG TAB PO SCH (09:30)
--- NOTE | 2020-03-07 11:23 | MRI ---
MRI BRAIN WITHOUT CONTRAST: HISTORY: TIA and blurred vision. Altered mental status. COMPARISON: 03/26/2019 CORRELATION: The previous day's CT scan. FINDINGS: Malacic and gliotic changes in the left cerebellar hemisphere and cerebellar vermis are again seen. C hanges of cortical atrophy and chronic small vessel ischemic disease are redemonstrated. No restricte d diffusion is seen. No evidence of acute infarct, hemorrhage, midline shift or abnormal extraaxial f luid collection is noted. The ventricular size is appropriate and the basilar cisterns are patent. Th e visualized paranasal sinuses and mastoid air cells are well aerated. IMPRESSION: No evidence of acute intracranial process. POS: SAMIRA
[2020-03-07 15:48] LABS: Potassium 3.9 mmol/L (3.5-5.1)
--- NOTE | 2020-03-07 19:07 | PDOC.HOSPP ---
- Subjective Encounter Date: 03/07/20 Encounter Time: 07:00 Subjective: The patient is doing well. No longer reports blurry vision. She has no dizziness or lightheadedness Heart rate controlled - Objective Vital Signs & Weight: Vital Signs (12 hours) Temp Pulse Resp BP BP Pulse Ox 03/07/20 15:40 96.9 F L 72 16 126/66 97 03/07/20 08:30 97.5 F L 65 18 143/65 H 97 Weight Weight 138 lb 4 oz I&O: 03/06/20 03/07/20 03/08/20 06:59 06:59 06:59 Intake Total 250 720 Balance 250 720 Result Diagrams: 03/07/20 03:52 03/07/20 15:27 Hospitalist ROS - Review of Systems Constitutional: denies: fever, chills - Medication Medications: Active Medications Generic Name Dose Route Start Last Admin Trade Name Freq PRN Reason Stop Dose Admin Acetaminophen 650 mg 03/06/20 15:34 03/07/20 02:31 Tylenol PO 650 mg Q4H PRN Administration Headache/Fever/Mild Pain (1-3) Aspirin 81 mg 03/07/20 09:00 03/07/20 08:39 Aspirin Chewable PO 81 mg DAILY STACIE Administration Enoxaparin Sodium 40 mg 03/07/20 09:00 03/07/20 08:39 Lovenox SC 40 mg 0900 STACIE Administration Famotidine 20 mg 03/06/20 21:00 03/07/20 08:39 Pepcid SLOW IVP 20 mg Q12HR STACIE Administration - Exam General Appearance: NAD, awake alert Eye: PERRL, anicteric sclera ENT: normocephalic atraumatic, no oropharyngeal lesions Neck: no JVD Heart: RRR, no murmur, no gallops, no rubs Respiratory: CTAB, no wheezes, no rales, no ronchi Gastrointestinal: soft, non-tender, non-distended, normal bowel sounds Extremities: no cyanosis, no clubbing, no edema Hosp A/P - Plan This is an 80 year old female who presented with blurred vision, noted to be bradycardic Bradycardia - heart rate better controlled now - no complaints of blurry vision - will d/c on event monitor tomorrow - ECHO unremarkable Blurry vision -MRI brain showed no stroke Acute encephalopathy - likely delirium - per nursing and family noted to be confused - delirium precautions - family to come in morning to reorient patient Hypokalemia - K 3.0 this morning, improved to 3.0 DVT prophylaxis: lovenox Code status:full code
[2020-03-07] MEDS: Atorvastatin Calcium 40 MG TAB PO SCH (20:23)
[2020-03-08 06:29] LABS: Chloride 99 mmol/L (98-107); Potassium 3.6 mmol/L (3.5-5.1); Sodium 136 mmol/L (136-145)
[2020-03-08 06:30] LABS: Calcium 9.4 mg/dL (7.8-10.44); Glucose 114 mg/dL (83-110)
[2020-03-08 06:32] LABS: Anion Gap 9 mmol/L (10-20); Carbon Dioxide 32 mmol/L (23-31)
[2020-03-08 06:34] LABS: BUN (Urea Nitrogen) 11 mg/dL (9.8-20.1); Calc. Creatinine Clearance 43 mL/min (70-130); Estimated GFR-MDRD 54
[2020-03-08] MEDS: Aspirin Chewable 81 MG TAB PO SCH (08:53)
[2020-03-08] MEDS: Lisinopril 10 MG TAB PO SCH (08:53)
[2020-03-08] MEDS: Famotidine/PF 20 mg/2ml Vial SLOW IVP SCH (08:54)
[2020-03-08] MEDS: Enoxaparin Sodium 40 MG/0.4 ML SYRINGE SC SCH (08:54)
--- NOTE | 2020-03-08 18:29 | PDOC.HOSPP ---
- Subjective Encounter Date: 03/08/20 Encounter Time: 09:30 Subjective: The patient is doing well. No blurry vision. No chest pain. No palpitations. She is eating well. Event monitor was placed today by cardiology When patient was asked the date today, she stated it was the 20th She was seen by physical therapy who felt she was unsteady and needed rehab. Spoke to the daughter who stated she cannot provide 24 hour superivision and would prefer a rehab in [place] - Objective Vital Signs & Weight: Vital Signs (12 hours) Temp Pulse Pulse Resp BP BP Pulse Ox 03/08/20 15:45 97.6 F 75 18 124/60 100 03/08/20 10:46 97.6 F 70 16 109/59 L 94 L 03/08/20 09:56 76 140/63 03/08/20 07:48 96.4 F L 69 18 143/68 H 99 Weight Weight 138 lb 4 oz I&O: 03/07/20 03/08/20 03/09/20 06:59 06:59 06:59 Intake Total 250 970 Balance 250 970 Result Diagrams: 03/07/20 03:52 03/08/20 06:06 Hospitalist ROS - Review of Systems Constitutional: denies: fever, chills - Medication Medications: Active Medications Generic Name Dose Route Start Last Admin Trade Name Freq PRN Reason Stop Dose Admin Acetaminophen 650 mg 03/06/20 15:34 03/07/20 02:31 Tylenol PO 650 mg Q4H PRN Administration Headache/Fever/Mild Pain (1-3) Aspirin 81 mg 03/07/20 09:00 03/08/20 08:53 Aspirin Chewable PO 81 mg DAILY STACIE Administration Atorvastatin Calcium 80 mg 03/07/20 21:00 03/07/20 20:23 Lipitor PO 80 mg HS STACIE Administration Enoxaparin Sodium 40 mg 03/07/20 09:00 03/08/20 08:54 Lovenox SC 40 mg 0900 STACIE Administration Lisinopril 10 mg 03/08/20 09:00 03/08/20 08:53 Zestril PO 10 mg DAILY STACIE Administration - Exam General Appearance: NAD, awake alert Eye: PERRL, anicteric sclera ENT: normocephalic atraumatic, no oropharyngeal lesions Neck: no JVD Heart: RRR, no murmur, no gallops, no rubs Respiratory: CTAB, no wheezes, no rales, no ronchi Gastrointestinal: soft, non-tender, non-distended, normal bowel sounds Extremities: no cyanosis, no clubbing, no edema Skin: normal turgor, no lesions, no rashes Neurological: cranial nerve grossly intact, normal sensation to touch, no focal deficits, no new deficit Musculoskeletal: normal tone, normal strength, no muscle wasting Psychiatric: normal affect, normal behavior, A&O x 3, oriented to person Hosp A/P - Plan This is an 80 year old female who presented with blurred vision, noted to be bradycardic Bradycardia - heart rate better controlled now - patient had event monitor placed today - ECHO unremarkable Blurry vision -MRI brain showed no stroke. Visual acuity intact Acute encephalopathy - likely delirium -seems to have resolved Hypokalemia -resolved Physical deconditioning - case management consulted for placement at rehab DVT prophylaxis: lovenox Code status:full code
[2020-03-08] MEDS: Atorvastatin Calcium 40 MG TAB PO SCH (22:30)
[2020-03-09] MEDS ORDERED: Famotidine/PF 20 mg/2ml Vial SLOW IVP SCH (09:00)
[2020-03-09] MEDS: Aspirin Chewable 81 MG TAB PO SCH (10:46)
[2020-03-09] MEDS: Enoxaparin Sodium 40 MG/0.4 ML SYRINGE SC SCH (10:46)
[2020-03-09] MEDS: Lisinopril 10 MG TAB PO SCH (10:47)
[2020-03-09 11:42] VITALS: BP 119/68; TEMP 97.8
--- NOTE | 2020-03-09 21:55 | DIS ---
DATE OF ADMISSION: 03/06/2020 DATE OF DISCHARGE: 03/09/2020 DISCHARGE DIAGNOSES: 1. Blurry vision. 2. Acute encephalopathy likely secondary to delirium. 3. Hypokalemia. 4. Physical deconditioning. 5. Bradycardia. 6. Hypertension. CONSULTATIONS: Cardiology, Dr. Zac Mckee. PROCEDURES: Event monitor placement. BRIEF HISTORY OF PRESENT ILLNESS: This is an 80-year-old female with past medical history of stroke, who had presented to the emergency room with seeing spots and changes in her vision. She was found to be bradycardic with a heart rate in the 30s. She is given atropine with improvement in her mental status. She denied any other symptoms. She is admitted for further workup. HOSPITAL COURSE: Blurry vision possibly secondary to bradycardia: The patient underwent an MRI of her brain, which showed no evidence of a stroke. She underwent carotid Dopplers, which showed [id number] echogenic plaque bilaterally. CT scan of her head was normal and chest x-ray was normal. The patient was seen by Cardiology in consultation. It was thought that her bradycardia might be secondary to metoprolol. Therefore, metoprolol was discontinued. ECHO showed an EF of 60% to 65% with diastolic dysfunction and [id number] aortic regurgitation. An event monitor was placed prior to discharge. She can be discharged with adequate outpatient followup. Physical deconditioning: The patient was seen by Physical Therapy. Initially, they recommended rehab; however, the following day, the patient did well without assistance using a walker. However, after talking to the daughter, she prefers that the patient go to [facility]. The patient was accepted at [facility] and will be discharged there. Hypokalemia: The patient had a potassium of 3.0. She was given potassium supplementation with improvement in her potassium. Hypertension: The patient was noted to have blood pressures in the 170s on admission. She was started on lisinopril 10 mg daily with improvement in blood pressure. DISCHARGE PHYSICAL EXAMINATION: VITAL SIGNS: Temperature 97.8, heart rate 79, respiratory rate 19, O2 saturation 96% on room air, blood pressure 116/60. GENERAL: The patient is alert. She was oriented to the date and the place. CVS: Regular rate and rhythm with no murmurs, rubs, or gallops. LUNGS: Clear to auscultation bilaterally. ABDOMEN: Positive bowel sounds. Soft, nontender, nondistended. EXTREMITIES: No edema. NEUROLOGIC: The patient's cranial nerves 2 through 12 are intact. She has 5/5 strength in all 4 extremities. She has intact sensation in all 4 extremities. PERTINENT LABORATORY DATA: CBC 03/07: Normal. BMP 03/08: Mildly elevated bicarb of 32. Rest of BMP is normal. Lipid panel 03/07: Triglyceride 124, cholesterol 153, LDL 76, HDL 52. TSH: 2.508. UA 03/06: Negative. COVID serology 03/06: Negative. IMAGING: CT brain 03/06: Negative. Chest x-ray 03/06: Negative. Carotid Doppler 03/06: [id number] echogenic plaque bilaterally. No evidence of significant stenosis. MRI brain 03/07: No evidence of acute process. Echo 03/07: [id number] aortic regurg. Mild tricuspid regurg. EF 60% to 65%. Diastolic dysfunction. DISCHARGE CONDITION: Stable. ACTIVITY: As tolerated. DIET: Regular heart healthy diet. DISCHARGE MEDICATIONS: 1. Aspirin 81 mg p.o. daily. 2. Hydrochlorothiazide 25 mg p.o. daily. 3. Potassium chloride 20 mEq p.o. daily. 4. Lisinopril 10 mg p.o. daily. Job ID: [id number] MTDD
== END 2020-03-09 16:14 | disposition home or self-care (01) ==
LOC: ERS 13:13 → INTOOBSV 16:14 → 2NO 16:14
PROVIDERS: ADMIT Internal Medicine Cardiovascular Disease; ATTEND Internal Medicine Cardiovascular Disease
DX: G93.41 Metabolic encephalopathy (principal); R00.1 Bradycardia, unspecified; H53.8 Other visual disturbances; R53.81 Other malaise; I10 Essential (primary) hypertension; E11.9 Type 2 diabetes mellitus without complications; E78.5 Hyperlipidemia, unspecified; E78.00 Pure hypercholesterolemia, unspecified; E83.42 Hypomagnesemia; E87.6 Hypokalemia; Z79.82 Long term (current) use of aspirin; Z79.899 Other long term (current) drug therapy; Z86.73 Personal history of transient ischemic attack (TIA), and cerebral infarction without residual deficits; Z87.891 Personal history of nicotine dependence; Z11.59 Encounter for screening for other viral diseases; Z20.828 Contact with and (suspected) exposure to other viral communicable diseases
CPT/HCPCS: 51701; 70450; 70551; 71045; 80048; 80061; 81003; 82553; 83690; 83735; 83880; 84132; 84484 ×2; 90670; 93005; 93306; 93880; 96365; 97116 ×2; 97139 ×3; 97530; 99285; G0009; G0378; U0002; 36415; 80053; 84443; 85025; 90471; J1650; J3475; S0028

== ENCOUNTER 2021-01-26 16:52 | Observation (INO) | payer MEDICARE ==
[2021-01-26 17:11] LABS: Hemoglobin 14.4 g/dL (12.0-16.0); Mean Corpuscular HGB CONC 32.4 g/dL (32.0-36.0); Mean Corpuscular Hemoglobin 28.5 pg (27.0-31.0); Mean Corpuscular Volume 87.8 fL (78.0-98.0); Mean Platelet Volume 6.6 fL (7.4-10.4); Platelet Count 244 thou/uL (130-400); RBC Distribution Width 13.6 % (11.5-14.5); Red Blood Cell (RBC) Count 5.07 mill/uL (4.20-5.40); White Blood Cell (WBC) Count 5.7 thou/uL (4.8-10.8)
[2021-01-26 17:20] LABS: INR-International Normal Ratio 0.9; PTT 27.1 sec (22.9-36.1); Prothrombin Time 12.5 sec (12.0-14.7)
[2021-01-26 17:23] LABS: ALT (SGPT) 15 U/L (8-55); AST (SGOT) 23 U/L (5-34); Alkaline Phosphatase 84 U/L (40-110); Anion Gap 11 mmol/L (10-20); BUN (Urea Nitrogen) 16 mg/dL (9.8-20.1); Bilirubin, Total 1.4 mg/dL (0.2-1.2); Calc. Creatinine Clearance 0 mL/min (70-130); Calcium 9.5 mg/dL (7.8-10.44); Carbon Dioxide 31 mmol/L (23-31); Chloride 97 mmol/L (98-107); Globulin 3.9 g/dL (2.4-3.5); Glucose 105 mg/dL (83-110); Potassium 3.4 mmol/L (3.5-5.1); Protein, Total 7.9 g/dL (5.8-8.1); Sodium 136 mmol/L (136-145)
[2021-01-26 17:32] LABS: Eosinophils 2 % (0-10); Lymphocytes 22 % (21-51); MDiff Complete? YES; Monocytes 13 % (0-10); Neutrophil 61 % (42-75); Platelet Morphology Comment Appears Adequate; RBC Morphology Normal
[2021-01-26 18:27] LABS: Bilirubin Negative (Negative); Blood, Urine Small (Negative); Glucose, Urine (Dipstick) Negative (Negative); Ketone, Urine Negative (Negative); Leukocyte Negative (Negative); Nitrite Negative (Negative); Protein, Urine (Dipstick) Negative (Neg-Trace); Urobilinogen 0.2 mg/dL (Less than 2); pH, Urine 5.5 (5.0-9.0)
[2021-01-26 18:34] LABS: Clarity Clear (Clear)
[2021-01-26 18:36] LABS: RBC/HPF 0-3 HPF (0-3); Squamous Epithelial 0-3 HPF (0-3); WBC/HPF 0-3 HPF (0-3)
[2021-01-26 18:40] LABS: Bacteria/HPF 1+ HPF (None Seen)
[2021-01-26] MEDS ORDERED: Aspirin 300 MG Suppository ONE (18:42)
[2021-01-26] MEDS ORDERED: Magnesium Sulfate 4 GM in Sodium Chloride 0.9% 250 ML 250 ML IVPB SCH (19:00)
[2021-01-26] MEDS ORDERED: Potassium Chloride 20 MEQ in Premix Bag 1 BAG IVPB SCH (19:00)
[2021-01-26] MEDS ORDERED: Ondansetron ODT 4 MG TAB PO PRN (21:47)
[2021-01-26] MEDS ORDERED: Ondansetron PF 4 MG/2 ML Vial IVP PRN (21:47)
[2021-01-26] MEDS ORDERED: Acetaminophen 325 MG TAB PO PRN (21:47)
[2021-01-27 00:31] LABS: SARS-CoV-2 NAA Rapid Test Not Detected (NotDetected)
[2021-01-27 03:58] VITALS: BMI 22.9
[2021-01-27 05:35] LABS: Mean Corpuscular HGB CONC 34.3 g/dL (32.0-36.0); Mean Corpuscular Hemoglobin 30.4 pg (27.0-31.0); Mean Corpuscular Volume 88.8 fL (78.0-98.0); Mean Platelet Volume 6.7 fL (7.4-10.4); Platelet Count 220 thou/uL (130-400); RBC Distribution Width 13.3 % (11.5-14.5); Red Blood Cell (RBC) Count 4.59 mill/uL (4.20-5.40); White Blood Cell (WBC) Count 5.8 thou/uL (4.8-10.8)
[2021-01-27 05:51] LABS: Anion Gap 10 mmol/L (10-20); BUN (Urea Nitrogen) 15 mg/dL (9.8-20.1); Calc. Creatinine Clearance 45 mL/min (70-130); Calcium 9.1 mg/dL (7.8-10.44); Carbon Dioxide 29 mmol/L (23-31); Cardiac Risk 1.8 (Less than 4.5); Chloride 104 mmol/L (98-107); Cholesterol 98 mg/dl (< 200 Desired); Glucose 112 mg/dL (83-110); HDL Cholesterol 54 mg/dL (>60 Neg Risk); LDL Cholesterol, Calculated 29 mg/dL; Potassium 3.7 mmol/L (3.5-5.1); Sodium 139 mmol/L (136-145); Triglycerides 73 mg/dL (Less than 150)
[2021-01-27 06:29] LABS: Band 8 % (5-11); Lymphocytes 10 % (21-51); MDiff Complete? YES; Monocytes 6 % (0-10); Neutrophil 75 % (42-75)
[2021-01-27] MEDS: Aspirin 81 mg Enteric Coated Tablet PO SCH (09:57)
[2021-01-27] MEDS: Enoxaparin Sodium 40 MG/0.4 ML SYRINGE SC SCH (09:57)
[2021-01-28] MEDS: Enoxaparin Sodium 40 MG/0.4 ML SYRINGE SC SCH (09:25)
[2021-01-28] MEDS: Aspirin 81 mg Enteric Coated Tablet PO SCH (09:25)
[2021-01-28 11:50] VITALS: TEMP 99.4
[2021-01-28 14:56] VITALS: BP 148/72
== END 2021-01-28 15:53 | disposition home or self-care (01) ==
LOC: ERS 16:52 → 2SE 18:14
PROVIDERS: ADMIT Internal Medicine; ATTEND Internal Medicine
DX: G45.9 Transient cerebral ischemic attack, unspecified (principal); I11.0 Hypertensive heart disease with heart failure; I50.33 Acute on chronic diastolic (congestive) heart failure; E87.6 Hypokalemia; G93.40 Encephalopathy, unspecified; R91.1 Solitary pulmonary nodule; I08.3 Combined rheumatic disorders of mitral, aortic and tricuspid valves; Z86.73 Personal history of transient ischemic attack (TIA), and cerebral infarction without residual deficits; Z87.891 Personal history of nicotine dependence; Z79.82 Long term (current) use of aspirin; Z79.899 Other long term (current) drug therapy; Z20.822 Contact with and (suspected) exposure to COVID-19
CPT/HCPCS: 70496; 70498; 70551; 80048; 80053; 80061; 82550; 82962; 83735 ×2; 84484; 85025 ×2; 85610; 85730; 93005; 93306; 95712; 95819; 96365; 96366; 96367; 96372 ×2; 97116; 97139 ×2; 99285; G0378 ×4; U0002; U0005; 36415; 36416; 70450; 81003; 81015; 95957; J1650; J3475; J3480; J7050; Q9967

== ENCOUNTER 2021-02-05 16:45 | Inpatient (IN) | payer MEDICARE ==
[2021-02-05 17:54] LABS: #Lymphocytes 0.5 thou/uL (1.20-3.40); #Monocytes 0.8 thou/uL (0.11-0.59); %Basophils 0.4 % (0.0-1.0); %Eosinophils 0.2 % (0.0-10.0); %Lymphocytes 4.1 % (21.0-51.0); %Monocytes 6.8 % (0.0-10.0); %Neutrophils 88.5 % (42.0-75.0); Hemoglobin 13.4 g/dL (12.0-16.0); Mean Corpuscular HGB CONC 34.7 g/dL (32.0-36.0); Mean Corpuscular Hemoglobin 30.7 pg (27.0-31.0); Mean Corpuscular Volume 88.4 fL (78.0-98.0); Mean Platelet Volume 6.7 fL (7.4-10.4); Platelet Count 230 thou/uL (130-400); RBC Distribution Width 13.9 % (11.5-14.5); Red Blood Cell (RBC) Count 4.38 mill/uL (4.20-5.40); White Blood Cell (WBC) Count 11.3 thou/uL (4.8-10.8)
[2021-02-05 18:25] LABS: ALT (SGPT) 19 U/L (8-55); AST (SGOT) 24 U/L (5-34); Albumin 3.7 g/dL (3.4-4.8); Alkaline Phosphatase 83 U/L (40-110); Anion Gap 14 mmol/L (10-20); BUN (Urea Nitrogen) 23 mg/dL (9.8-20.1); Bilirubin, Total 1.3 mg/dL (0.2-1.2); Calc. Creatinine Clearance 0 mL/min (70-130); Calcium 9.1 mg/dL (7.8-10.44); Carbon Dioxide 29 mmol/L (23-31); Chloride 98 mmol/L (98-107); Globulin 3.8 g/dL (2.4-3.5); Glucose 142 mg/dL (83-110); Protein, Total 7.5 g/dL (5.8-8.1); Sodium 138 mmol/L (136-145)
[2021-02-05 18:28] LABS: Troponin I Less than 0.010 ng/mL (< 0.028)
[2021-02-05] MEDS ORDERED: Potassium Chloride 20 MEQ TAB ONE (19:30)
[2021-02-05 20:32] LABS: Bilirubin Negative (Negative); Blood, Urine Negative (Negative); Clarity Clear (Clear); Glucose, Urine (Dipstick) Normal (Negative); Ketone, Urine Negative (Negative); Leukocyte Negative Leu/uL (Negative); Nitrite Negative (Negative); Protein, Urine (Dipstick) Negative (Neg-Trace); pH, Urine 5.5 (5.0-9.0)
[2021-02-06] MEDS ORDERED: hydrALAZINE 20 MG/ML VIAL SLOW IVP PRN (01:06)
[2021-02-06] MEDS ORDERED: Labetalol HCl 100 MG/20 ML VIAL SLOW IVP PRN (01:06)
[2021-02-06] MEDS ORDERED: Clopidogrel Bisulfate 75 MG TAB PO SCH (01:15)
[2021-02-06] MEDS ORDERED: Aspirin Chewable 81 MG TAB PO SCH (01:15)
[2021-02-06] MEDS ORDERED: Clopidogrel Bisulfate 75 MG TAB ONE ×2 (02:44→11:28)
[2021-02-06] MEDS ORDERED: Aspirin Chewable 81 MG TAB ONE ×2 (02:44→11:28)
[2021-02-06] MEDS ORDERED: Enoxaparin Sodium 40 MG/0.4 ML SYRINGE ONE (11:32)
[2021-02-06] MEDS: Clopidogrel Bisulfate 75 MG TAB PO SCH (11:35)
[2021-02-06] MEDS: Aspirin 81 mg Enteric Coated Tablet PO SCH (11:35)
[2021-02-06] MEDS: Enoxaparin Sodium 40 MG/0.4 ML SYRINGE SC SCH (11:36)
[2021-02-06] MEDS: Hydrochlorothiazide 25 MG TAB PO SCH (13:01)
[2021-02-06 18:00] VITALS: BMI 22.8
[2021-02-06] MEDS: Atorvastatin Calcium 40 MG TAB PO SCH (20:13)
[2021-02-06] MEDS ORDERED: Atorvastatin Calcium 40 MG TAB PO SCH (21:00)
[2021-02-07 02:07] LABS: Bacteria/HPF 1+ HPF (None Seen); Bilirubin Negative (Negative); Blood, Urine Trace (Negative); Clarity Clear (Clear); Glucose, Urine (Dipstick) 30 mg/dL (Negative); Ketone, Urine Negative (Negative); Leukocyte Negative Leu/uL (Negative); Nitrite Negative (Negative); Protein, Urine (Dipstick) Negative (Neg-Trace); RBC/HPF 0-3 HPF (0-3); Specific Gravity, Urine 1.009 (1.002-1.036); Squamous Epithelial 0-3 HPF (0-3); Urobilinogen Normal mg/dL (Less than 2); WBC/HPF 0-3 HPF (0-3)
[2021-02-07 05:19] LABS: Hemoglobin 13.5 g/dL (12.0-16.0); Mean Corpuscular HGB CONC 34.8 g/dL (32.0-36.0); Mean Corpuscular Hemoglobin 30.6 pg (27.0-31.0); Mean Platelet Volume 6.7 fL (7.4-10.4); Platelet Count 241 thou/uL (130-400); RBC Distribution Width 13.9 % (11.5-14.5); Red Blood Cell (RBC) Count 4.41 mill/uL (4.20-5.40); White Blood Cell (WBC) Count 5.4 thou/uL (4.8-10.8)
[2021-02-07 05:42] LABS: Anion Gap 14 mmol/L (10-20); BUN (Urea Nitrogen) 17 mg/dL (9.8-20.1); Calc. Creatinine Clearance 46 mL/min (70-130); Calcium 9.6 mg/dL (7.8-10.44); Carbon Dioxide 29 mmol/L (23-31); Chloride 99 mmol/L (98-107); Glucose 120 mg/dL (83-110); Magnesium 1.4 mg/dL (1.6-2.6); Potassium 3.2 mmol/L (3.5-5.1); Sodium 139 mmol/L (136-145)
[2021-02-07 05:51] LABS: Band 2 % (5-11); Lymphocytes 23 % (21-51); MDiff Complete? YES; Monocytes 12 % (0-10); Neutrophil 63 % (42-75)
[2021-02-07] MEDS: Enoxaparin Sodium 40 MG/0.4 ML SYRINGE SC SCH (09:27)
[2021-02-07] MEDS: Clopidogrel Bisulfate 75 MG TAB PO SCH (09:28)
[2021-02-07] MEDS: Hydrochlorothiazide 25 MG TAB PO SCH (09:28)
[2021-02-07] MEDS: Aspirin 81 mg Enteric Coated Tablet PO SCH (09:28)
[2021-02-07] MEDS: Potassium Chloride 20 MEQ TAB PO SCH (09:28)
[2021-02-07] MEDS: Atorvastatin Calcium 40 MG TAB PO SCH (20:59)
[2021-02-08] MEDS: Enoxaparin Sodium 40 MG/0.4 ML SYRINGE SC SCH (07:53)
[2021-02-08] MEDS: Potassium Chloride 20 MEQ TAB PO SCH (07:53)
[2021-02-08] MEDS: Clopidogrel Bisulfate 75 MG TAB PO SCH (07:53)
[2021-02-08] MEDS: Hydrochlorothiazide 25 MG TAB PO SCH (07:53)
[2021-02-08] MEDS: Aspirin 81 mg Enteric Coated Tablet PO SCH (07:54)
[2021-02-08 12:05] VITALS: BP 125/61; TEMP 97.3
[2021-02-08] MEDS ORDERED: levETIRAcetam 500 MG TAB PO SCH (21:00)
== END 2021-02-08 17:53 | disposition home or self-care (01) | DRG 312 ==
LOC: ERS 16:45 → ERHOLD 22:13 → 2SW 02-06 15:38 → OBSVTOIN 02-07 14:04
PROVIDERS: ADMIT Internal Medicine; ATTEND Internal Medicine
DX: R55 Syncope and collapse (principal); I50.32 Chronic diastolic (congestive) heart failure; I11.0 Hypertensive heart disease with heart failure; E87.6 Hypokalemia; E78.00 Pure hypercholesterolemia, unspecified; E11.9 Type 2 diabetes mellitus without complications; Z79.899 Other long term (current) drug therapy; Z86.73 Personal history of transient ischemic attack (TIA), and cerebral infarction without residual deficits; Z90.710 Acquired absence of both cervix and uterus; Z87.891 Personal history of nicotine dependence; Z79.02 Long term (current) use of antithrombotics/antiplatelets
CPT/HCPCS: 36415; 70450; 70551; 80048; 80053; 81003; 81015; 83735; 83880; 84484; 85025; 93005; 93010; 95712; 95819; 95957; 96372; G0378; J1650

== ENCOUNTER 2023-07-30 20:57 | Inpatient (IN) | payer MEDICARE, OTHER ==
[2023-07-30 22:16] LABS: #Monocytes 1.3 thou/uL (0.11-0.59); #Neutrophils 13.2 thou/uL (1.40-6.50); %Basophils 0.2 % (0.0-1.0); %Eosinophils 0.2 % (0.0-10.0); %Lymphocytes 2.4 % (21.0-51.0); %Monocytes 8.7 % (0.0-10.0); %Neutrophils 87.8 % (42.0-75.0); Hematocrit 37.2 % (36.0-47.0); Hemoglobin 11.8 g/dL (12.0-16.0); Mean Corpuscular HGB CONC 31.7 g/dL (32.0-36.0); Mean Corpuscular Hemoglobin 27.8 pg (27.0-31.0); Mean Corpuscular Volume 87.7 fl (78.0-98.0); Mean Platelet Volume 9.1 fL (7.4-10.4); Platelet Count 365 10x3/uL (130-400); RBC Distribution Width 15.5 % (11.5-14.5); Red Blood Cell (RBC) Count 4.24 mill/uL (4.20-5.40); White Blood Cell (WBC) Count 15.1 10x3/uL (4.8-10.8)
[2023-07-30 22:40] LABS: ALT (SGPT) 15 U/L (8-55); AST (SGOT) 20 U/L (5-34); Alkaline Phosphatase 89 U/L (40-110); Anion Gap 13 mmol/L (10-20); BUN (Urea Nitrogen) 30 mg/dL (9.8-20.1); CK (CPK) 44 U/L (29-168); Calc. Creatinine Clearance 0 mL/min (70-130); Carbon Dioxide 23 mmol/L (23-31); Chloride 103 mmol/L (98-107); Estimated GFR 28; Globulin 3.9 g/dL (2.4-3.5); Glucose 187 mg/dL (83-110); Potassium 3.4 mmol/L (3.5-5.1); Protein, Total 7.9 g/dL (5.8-8.1); Sodium 136 mmol/L (136-145)
[2023-07-30 22:47] LABS: Troponin I Less than 0.010 ng/mL (< 0.028)
[2023-07-31 01:00] LABS: Bilirubin Negative (Negative); Blood, Urine 1+ (Negative); CAUTI Indications for Culture Alt mental st,lethar; Clarity Turbid (Clear); Glucose, Urine (Dipstick) 150 mg/dL (Negative); Ketone, Urine Negative (Negative); Leukocyte 25 Leu/uL (Negative); Nitrite Negative (Negative); Protein, Urine (Dipstick) 30 mg/dL (Neg-Trace); Specific Gravity, Urine 1.022 (1.002-1.036); Urobilinogen Normal mg/dL (Less than 2); WBC/HPF 0-3 HPF (0-3)
[2023-07-31 01:09] LABS: Bacteria/HPF 1+ HPF (None Seen)
[2023-07-31 01:10] LABS: Urine Culture Reflex No No
[2023-07-31] MEDS ORDERED: Ondansetron PF 4 MG/2 ML Vial IVP PRN (02:12)
[2023-07-31] MEDS ORDERED: Acetaminophen 325 MG TAB PO PRN (02:12)
[2023-07-31] MEDS ORDERED: Sodium Chloride 0.9% 1,000 ML IV SCH (02:30)
[2023-07-31] MEDS ORDERED: Potassium Chloride 20 MEQ TAB PO SCH (02:30)
[2023-07-31 04:11] LABS: #Neutrophils 8.6 thou/uL (1.40-6.50); %Basophils 0.2 % (0.0-1.0); %Eosinophils 0.4 % (0.0-10.0); %Lymphocytes 7.7 % (21.0-51.0); %Monocytes 9.5 % (0.0-10.0); %Neutrophils 81.8 % (42.0-75.0); Hematocrit 32.6 % (36.0-47.0); Hemoglobin 10.2 g/dL (12.0-16.0); Mean Corpuscular HGB CONC 31.3 g/dL (32.0-36.0); Mean Corpuscular Hemoglobin 27.5 pg (27.0-31.0); Mean Corpuscular Volume 87.9 fl (78.0-98.0); Mean Platelet Volume 8.9 fL (7.4-10.4); Platelet Count 289 10x3/uL (130-400); RBC Distribution Width 15.4 % (11.5-14.5); Red Blood Cell (RBC) Count 3.71 mill/uL (4.20-5.40); White Blood Cell (WBC) Count 10.5 10x3/uL (4.8-10.8)
[2023-07-31] MEDS ORDERED: Potassium Chloride 20 MEQ TAB ONE (04:18)
[2023-07-31] MEDS ORDERED: cefTRIAXone (ROCEPHIN) 1 GM VIAL ONE (04:18)
[2023-07-31] MEDS ORDERED: Sodium Chloride 0.9% 100 ML ONE (04:18)
[2023-07-31 04:31] LABS: Anion Gap 11 mmol/L (10-20); BUN (Urea Nitrogen) 28 mg/dL (9.8-20.1); Calc. Creatinine Clearance 0 mL/min (70-130); Calcium 8.9 mg/dL (7.8-10.44); Carbon Dioxide 23 mmol/L (23-31); Chloride 106 mmol/L (98-107); Estimated GFR 39; Glucose 116 mg/dL (83-110); Magnesium 1.6 mg/dL (1.6-2.6); Potassium 3.4 mmol/L (3.5-5.1); Sodium 137 mmol/L (136-145)
[2023-07-31 07:52] VITALS: BMI 26.4
[2023-07-31] MEDS ORDERED: levETIRAcetam 500 MG TAB ONE (08:14)
[2023-07-31] MEDS: levETIRAcetam 500 MG TAB PO SCH ×2 (09:29→23:19)
[2023-07-31] MEDS ORDERED: Electrolyte Replacement Protocol 1 EACH FS ONE (12:16)
[2023-07-31] MEDS ORDERED: Electrolyte Replacement Protocol FS PRN (12:30)
[2023-07-31] MEDS ORDERED: Magnesium 2 GM/50 ML(in water) 2 GM in Premix 1 BAG IVPB SCH (14:00)
[2023-07-31] MEDS ORDERED: Magnesium 2 GM/50 ML BAG (IN WATER) ONE (15:06)
[2023-07-31] MEDS ORDERED: Non-Formulary Item 1 EACH (Atorvastatin Calcium [Atorvastatin Calcium] 80 MG Tablet) PO SCH (21:00)
[2023-07-31] MEDS: Atorvastatin Calcium 40 MG TAB PO SCH (23:18)
[2023-08-01] MEDS: cefTRIAXone\\ROCEPHIN 1 GM in Sodium Chloride 0.9% 100 ML IVPB SCH ×3 (02:53→10:50)
[2023-08-01 06:02] LABS: #Monocytes 0.9 thou/uL (0.11-0.59); #Neutrophils 5.2 thou/uL (1.40-6.50); %Basophils 0.3 % (0.0-1.0); %Eosinophils 0.6 % (0.0-10.0); %Lymphocytes 8.5 % (21.0-51.0); %Monocytes 13.1 % (0.0-10.0); %Neutrophils 77.1 % (42.0-75.0); Hematocrit 30.6 % (36.0-47.0); Hemoglobin 9.9 g/dL (12.0-16.0); Mean Corpuscular HGB CONC 32.4 g/dL (32.0-36.0); Mean Corpuscular Hemoglobin 27.8 pg (27.0-31.0); Platelet Count 282 10x3/uL (130-400); RBC Distribution Width 15.4 % (11.5-14.5); Red Blood Cell (RBC) Count 3.56 mill/uL (4.20-5.40); White Blood Cell (WBC) Count 6.7 10x3/uL (4.8-10.8)
[2023-08-01 06:55] LABS: Calcium 9.1 mg/dL (7.8-10.44); Chloride 107 mmol/L (98-107); Glucose 120 mg/dL (83-110); Potassium 3.7 mmol/L (3.5-5.1); Sodium 136 mmol/L (136-145)
[2023-08-01 06:57] LABS: Anion Gap 11 mmol/L (10-20); Carbon Dioxide 22 mmol/L (23-31)
[2023-08-01 06:59] LABS: Calc. Creatinine Clearance 42 mL/min (70-130); Estimated GFR 50
[2023-08-01 07:00] LABS: BUN (Urea Nitrogen) 20 mg/dL (9.8-20.1)
[2023-08-01 07:01] LABS: Magnesium 1.7 mg/dL (1.6-2.6)
[2023-08-01] MEDS ORDERED: Magnesium 2 GM/50 ML(in water) 2 GM in Premix 1 BAG IVPB SCH (08:00)
[2023-08-01] MEDS ORDERED: Aspirin Chewable 81 MG TAB PO SCH (09:00)
[2023-08-01] MEDS ORDERED: FLU VACC QS2023(65UP)/MF59C/PF 60 MCG/0.5 ML SYRINGE IM ONE (09:00)
[2023-08-01] MEDS: levETIRAcetam 500 MG TAB PO SCH ×2 (09:04→19:49)
[2023-08-01] MEDS ORDERED: diphenhydrAMINE 30 GM TUBE TOP PRN (09:29)
[2023-08-01] MEDS: Atorvastatin Calcium 40 MG TAB PO SCH (19:49)
[2023-08-02 04:16] LABS: #Eosinphils 0.1 thou/uL (0.0-0.7); #Monocytes 1.1 thou/uL (0.11-0.59); #Neutrophils 4.7 thou/uL (1.40-6.50); %Basophils 0.5 % (0.0-1.0); %Eosinophils 1.2 % (0.0-10.0); Hematocrit 32.5 % (36.0-47.0); Hemoglobin 10.4 g/dL (12.0-16.0); Mean Corpuscular Hemoglobin 27.5 pg (27.0-31.0); Mean Platelet Volume 8.7 fL (7.4-10.4); Platelet Count 271 10x3/uL (130-400); RBC Distribution Width 15.2 % (11.5-14.5); Red Blood Cell (RBC) Count 3.78 mill/uL (4.20-5.40); White Blood Cell (WBC) Count 6.6 10x3/uL (4.8-10.8)
[2023-08-02 04:39] LABS: Anion Gap 12 mmol/L (10-20); BUN (Urea Nitrogen) 17 mg/dL (9.8-20.1); Calc. Creatinine Clearance 42 mL/min (70-130); Calcium 9.3 mg/dL (7.8-10.44); Carbon Dioxide 23 mmol/L (23-31); Chloride 105 mmol/L (98-107); Estimated GFR 50; Glucose 116 mg/dL (83-110); Sodium 136 mmol/L (136-145)
[2023-08-02 09:06] VITALS: TEMP 98.1
[2023-08-02] MEDS: levETIRAcetam 500 MG TAB PO SCH (09:52)
[2023-08-02] MEDS: cefTRIAXone\\ROCEPHIN 1 GM in Sodium Chloride 0.9% 100 ML IVPB SCH (09:53)
[2023-08-02 10:55] VITALS: BP 137/65
== END 2023-08-02 11:10 | DRG 640 ==
LOC: ERS 20:57 → ERHOLD 07-31 02:14 → 2SW 07-31 16:02 → OBSVTOIN 08-01 11:07
PROVIDERS: ADMIT Internal Medicine; ATTEND Internal Medicine
PROC: 4A10X4Z Monitoring of Central Nervous Electrical Activity, External Approach (ICD-10-PCS; principal; 2023-07-31)
DX: E87.6 Hypokalemia (principal); G93.41 Metabolic encephalopathy; I50.32 Chronic diastolic (congestive) heart failure; N39.0 Urinary tract infection, site not specified; N17.9 Acute kidney failure, unspecified; I95.9 Hypotension, unspecified; D72.829 Elevated white blood cell count, unspecified; S00.30XA Unspecified superficial injury of nose, initial encounter; G40.909 Epilepsy, unspecified, not intractable, without status epilepticus; I11.0 Hypertensive heart disease with heart failure; Z79.899 Other long term (current) drug therapy; Z79.82 Long term (current) use of aspirin; Z86.73 Personal history of transient ischemic attack (TIA), and cerebral infarction without residual deficits; Z98.890 Other specified postprocedural states; Z90.710 Acquired absence of both cervix and uterus
CPT/HCPCS: 36415; 70450; 70551; 71045; 72125; 80048; 80053; 80177; 81001; 82550; 83735; 83880; 84484; 85025; 87040; 87077; 87086; 87186; 93005; 93306; 95711; 95819; 96365; J0696; J3475; J3490; J7050